=== PATIENT | male | born 1960 | race Caucasian/White ===

== ENCOUNTER → 2017-04-10 | Outpatient (CLI) | payer MEDICAID ==
--- NOTE | 2017-04-10 09:07 | XR ---
EXAMINATION TYPE: XR Hip Bilateral Complete DATE OF EXAM: 04/10/2017 CLINICAL HISTORY: Chronic increasing bilateral hip pain TECHNIQUE: AP and frogleg views of the bilateral hips are obtained. COMPARISON: None. FINDINGS: There is no acute fracture/dislocation evident in either hip. The there is advanced super ior joint space loss bilaterally with bone 3 formation including spurring and subchondral cystic coleman ge. There is flattening of bilateral femoral heads with sclerosis indicating component of avascular n ecrosis on background of advanced degenerative change cannot be excluded. There is additional margina l spurring. Scattered pelvic phleboliths are present. IMPRESSION: There is fairly symmetric advanced DJD in the bilateral hips.
== END | disposition home or self-care (01) ==
LOC: RADXRYALE 08:49
PROVIDERS: ATTEND Physician Assistant Medical
DX: M16.0 Bilateral primary osteoarthritis of hip (principal)
CPT/HCPCS: 73521

== ENCOUNTER 2017-07-24 08:39 | Day surgery (SDC) | payer MEDICAID ==
[2017-07-19 14:29] VITALS: BMI 33.0
[~2017-07-24 08:39] MED LIST: DEXAMETHASONE SOD PHOSPHATE 10 MG/ML 1 ML VIAL IV ONE; HEPARIN SODIUM,PORCINE 5,000 UNIT/ML 1 ML VIAL SQ ONE; HYDROmorphone 0.5 MG/0.5 ML SYRINGE IVP PRN; MORPHINE SULFATE 4 MG/ML SYRINGE IV PRN; ONDANSETRON 4 MG/2 ML VIAL IVP ONE; PROMETHAZINE INJ 6.25 MG in SODIUM CHLORIDE 0.9% 50 ML IVPB PRN; ceFAZolin IN SWFI 2 GM/20 ML SYRINGE IVP ONE
[2017-07-24] MEDS ORDERED: LIDOCAINE 1% 20 ML VIAL (10MG/ML) FOR IV START INTRADERMA ONE (09:10)
[2017-07-24] MEDS: LACTATED RINGERS 1,000 ML IV SCH ×2 (09:19→09:31)
--- NOTE | 2017-07-24 09:20 | P.GSHP ---
History of Present Illness H&P Date: 07/24/17 Chief Complaint: Incarcerated umbilical hernia, right inguinal hernia This a 57-year-old male referred from Dr. Johnson. Patient presents today for laparoscopic robotic-assisted repair of incarcerated umbilical hernia and right inguinal hernia. Past Medical History Past Medical History: Hyperlipidemia, Hypertension Additional Past Medical History / Comment(s): ing. and umbilical hernia History of Any Multi-Drug Resistant Organisms: None Reported Past Surgical History: Appendectomy, Hernia Repair, Orthopedic Surgery Additional Past Surgical History / Comment(s): rt rotator cuff Past Anesthesia/Blood Transfusion Reactions: No Reported Reaction Smoking Status: Current every day smoker - Past Family History Mother Family Medical History: No Reported History Medications and Allergies Home Medications Medication Instructions Recorded Confirmed Type Atorvastatin [Lipitor] 40 mg PO HS 07/19/17 07/24/17 History Chlorthalidone [Hygroton] 12.5 mg PO QAM 07/19/17 07/24/17 History Chlorthalidone [Hygroton] 25 mg PO HS 07/19/17 07/24/17 History Meloxicam 15 mg PO DAILY 07/19/17 07/24/17 History Multivitamins, Thera [Multivitamin 1 tab PO DAILY 07/19/17 07/24/17 History (formulary)] Allergies Allergy/AdvReac Type Severity Reaction Status Date / Time No Known Allergies Allergy Verified 07/19/17 14:21 Surgical - Exam - General well developed, no distress - Eyes PERRL - ENT normal pinna - Neck no masses - Respiratory normal expansion - Cardiovascular Rhythm: regular - Abdomen Abdomen: soft, non tender Hernia: umbilical (Incarcerated umbilical hernia, reducible right inguinal hernia) Assessment and Plan Assessment: Incarcerated we'll hernia, right inguinal hernia. We'll perform laparoscopic robotic-assisted repair.
[2017-07-24] MEDS ORDERED: GLYCOPYRROLATE 0.2 MG/ML 2 ML VIAL ONE (09:46)
[2017-07-24] MEDS ORDERED: HYDROmorphone (PF) 1 MG/ML ONE (09:46)
[2017-07-24] MEDS ORDERED: ROCURONIUM BROMIDE 10 MG/ML 10 ML VIAL IV ONE (09:46)
[2017-07-24] MEDS ORDERED: fentaNYL (PF) 50 MCG/ML 2 ML AMP ONE (09:46)
[2017-07-24] MEDS ORDERED: LIDOCAINE 1% INJ 10MG/ML (20 ML MDV) ONE (09:46)
[2017-07-24] MEDS ORDERED: NEOSTIGMINE 1 MG/ML 10 ML VIAL ONE (09:46)
[2017-07-24] MEDS ORDERED: PROPOFOL 10 MG/ML 20 ML VIAL IV ONE (09:46)
[2017-07-24] MEDS ORDERED: SUCCINYLCHOLINE CHLORIDE 100 MG/5 ML SYR IV ONE (09:46)
[2017-07-24] MEDS ORDERED: MIDAZOLAM 2 MG/2 ML VIAL ONE (09:46)
[2017-07-24] MEDS ORDERED: ePHEDrine SULFATE/0.9% NACL/PF 50 MG/5 ML SYRINGE IV ONE (09:46)
--- NOTE | 2017-07-24 09:47 | P.OP ---
Date of Procedure: 07/24/17 Preoperative Diagnosis: GERD Diarrhea Postoperative Diagnosis: Mild antral gastritis Mild esophagitis No significant hiatal hernia Mild diverticulosis Procedure(s) Performed: EGD Colonoscopy Anesthesia: MAC Surgeon: Patel Tavares Pathology: other (Antrum, esophagus) Condition: stable Disposition: PACU Description of Procedure: The patient's placed on the endoscopy table in the lateral position. He received IV sedation. The gastroscope placed oropharynx passed in the esophagus and into the stomach. Scope was then placed through the pylorus. The first and second portion of the duodenum appeared normal. Scope was then brought back the antrum this was mildly inflamed. A biopsies performed. The scope was then retroflexed and the remainder of the stomach appeared normal. There was no significant hiatal hernia. The GE junction was at 40 cm. The distal esophagus appeared mildly inflamed and a biopsies performed. The proximal esophagus appeared normal. The scope was withdrawn for patient. Next digital rectal exam is performed which revealed no abnormalities. The flexor colonoscope was then placed patient anus passed throughout the entire colon. The ileocecal valve was visualized. The cecum, ascending and transverse colon appeared normal. The scope was then brought back into the descending and sigmoid colon is mild diverticular changes. Scope was then brought back the rectum and this appeared normal. Scope was withdrawn from patient.
[2017-07-24] MEDS ORDERED: BUPIVACAINE (PF) 0.25% 30 ML VIAL SQ ONE (10:25)
[2017-07-24] MEDS ORDERED: LIDOCAINE 1%-EPI 1:100,000 30 ML VIAL SQ ONE (11:12)
[2017-07-24] MEDS: MEPERIDINE 50 MG/ML SYRINGE IVP ONE ×2 (11:40→12:16)
[2017-07-24] MEDS ORDERED: KETOROLAC 30 MG/ML 1 ML VIAL IVP ONE (11:40)
[2017-07-24] MEDS ORDERED: diphenhydrAMINE 50 MG/ML 1 ML VIAL IVP ONE (11:43)
[2017-07-24 11:46] VITALS: TEMP 96.8
[2017-07-24] MEDS ORDERED: HYDROcodone/APAP 7.5-325MG 1 EACH TAB PO ONE (13:39)
--- NOTE | 2017-07-24 13:50 | P.OP ---
Date of Procedure: 07/24/17 Preoperative Diagnosis: Umbilical hernia Recurrent right inguinal hernia Postoperative Diagnosis: Incarcerated umbilical hernia Recurrent right internal hernia Recurrent left inguinal hernia Procedure(s) Performed: Laparoscopic repair robotic-assisted of recurrent right inguinal hernia and recurrent left inguinal hernia Laparoscopic robotic spare of incarcerated umbilical hernia Laparoscopic excision of right cord lipoma Laparoscopic excision of left cord lipoma Anesthesia: ANGELA Surgeon: Patel Tavares Estimated Blood Loss (ml): 5 Pathology: other (Right and left cord lipoma) Condition: stable Disposition: PACU Description of Procedure: The patient was placed on the operating table in the supine position. The patient received general anesthesia. The patient's abdomen was prepped and draped in usual sterile fashion. The skin was anesthetized 1% local Xylocaine at the incision sites. Using an 11 blade a skin incision was made at the umbilicus. The patient's found have a small incarcerated umbilical hernia. The fascia was grasped with a Julianne and then the peritoneal cavity was entered with the Veress needle. Position of the Veress needle was confirmed with a positive drop test. After adequate insufflation a 5 mm trocar was placed into the peritoneal cavity. The Laparoscope was placed the peritoneal cavity. And a robotic 8 mm trocar was placed in the right lateral position and then another 8 mm robotic trochars placed in the left lateral position. The original 5 mm trocar was exchanged for a 12 mm trocar. The patient was placed in reverse Trendelenburg and then the patient was docked to the robot. Next the peritoneum over top of the right inguinal hernia was incised and then using blunt and sharp dissection and electrocautery the hernia sac was dissected free from the floor of the inguinal canal. The hernia sac was completely reduced into the peritoneal cavity. The right cord lipoma was then dissected free from the cord and excised. And then using the Pro cart pusher mesh the hernia was repaired. The peritoneum was then sutured with 2-0V lock suture. Next the peritoneum over top of the left inguinal hernia was incised and then using blunt and sharp dissection and electrocautery the hernia sac was dissected free from the floor of the inguinal canal. The hernia sac was completely reduced into the peritoneal cavity. The left cord lipoma was then dissected free from the cord and excised. And then using the Pro cart pusher mesh the hernia was repaired. The peritoneum was then sutured with 2-0V lock suture. The patient was then undocked the robot. The needle was withdrawn from the peritoneal cavity. The cord lipomas were withdrawn and sent to pathology. The umbilical hernia site was closed with 0 Ethibond suture. The skin was closed interrupted 3-0 Monocryl suture. Dermabond dressing was applied. Patient was sent to recovery in stable condition.
[2017-07-24] MEDS ORDERED: IV FLUID CONTINUATION 1,000 ML IV ONE (14:23)
[2017-07-24 15:15] VITALS: BP 136/81; PULSE 91; RESP 18
== END 2017-07-24 15:50 | disposition home or self-care (01) ==
LOC: OR 08:39
PROVIDERS: ATTEND Surgery
DX: K40.21 Bilateral inguinal hernia, without obstruction or gangrene, recurrent (principal); K42.0 Umbilical hernia with obstruction, without gangrene; I10 Essential (primary) hypertension; E66.01 Morbid (severe) obesity due to excess calories; D17.6 Benign lipomatous neoplasm of spermatic cord; E78.5 Hyperlipidemia, unspecified; F17.200 Nicotine dependence, unspecified, uncomplicated; Z79.899 Other long term (current) drug therapy; Z79.1 Long term (current) use of non-steroidal anti-inflammatories (NSAID); Z68.33 Body mass index [BMI] 33.0-33.9, adult
CPT/HCPCS: 49651; 88304; C1781; J2250; J1200; J1644; J1100; J2710; J2175; J2405; J2001; J3010; J1885; J1170; J0330; J2704; J0690

== ENCOUNTER → 2018-03-21 | Outpatient (CLI) | payer MEDICAID ==
[2018-03-21 10:40] LABS: Appearance,Urine Clear (Clear); Bilirubin,Urine Negative (Negative); Blood,Urine Negative (Negative); Color,Urine Yellow; Glucose,Urine (UA) Negative (Negative); Ketones,Urine Negative (Negative); Leukocyte Esterase,Urine Negative (Negative); Nitrite,Urine Negative (Negative); PH, Urine 7.5 (5.0-8.0); Protein,Urine Negative (Negative); Specific Gravity,Urine 1.013 (1.001-1.035); Urobilinogen,Urine <2.0 mg/dL (<2.0)
[2018-03-21 10:41] LABS: HCT 48.9 % (39.0-53.0); HGB 16.2 gm/dL (13.0-17.5); MCV 90.8 fL (80.0-100.0); Mean Platelet Volume 7.5; Platelet Count 391 k/uL (150-450); RBC 5.39 m/uL (4.30-5.90); RDW 13.7 % (11.5-15.5); WBC 8.8 k/uL (3.8-10.6)
[2018-03-21 10:53] LABS: Partial Thromboplastin Time 24.7 sec (22.0-30.0)
[2018-03-21 10:55] LABS: ALT 36 U/L (21-72); AST 34 U/L (17-59); Albumin 4.1 g/dL (3.5-5.0); Alkaline Phosphatase 115 U/L (38-126); Anion Gap 10 mmol/L; Blood Urea Nitrogen 16 mg/dL (9-20); Calcium 10.1 mg/dL (8.4-10.2); Carbon Dioxide 29 mmol/L (22-30); Chloride 101 mmol/L (98-107); Glucose 104 mg/dL (74-99); Sodium 140 mmol/L (137-145); Total Bilirubin 0.8 mg/dL (0.2-1.3); Total Protein 7.6 g/dL (6.3-8.2)
== END | disposition home or self-care (01) ==
LOC: LABPAT 10:01
PROVIDERS: ATTEND Orthopaedic Surgery
DX: Z01.812 Encounter for preprocedural laboratory examination (principal); M16.11 Unilateral primary osteoarthritis, right hip
CPT/HCPCS: 80053; 81003; 85027; 85610; 85730; 86850; 86900; 86901; 87070

== ENCOUNTER 2018-04-01 11:55 | Inpatient (IN) | payer MEDICAID ==
[2018-03-24 16:28] VITALS: BMI 36.0
[~2018-04-01 11:55] MED LIST changes: -DEXAMETHASONE SOD PHOSPHATE 10 MG/ML 1 ML VIAL IV ONE; -HEPARIN SODIUM,PORCINE 5,000 UNIT/ML 1 ML VIAL SQ ONE; +LIDOCAINE 1% 20 ML VIAL (10MG/ML) FOR IV START INTRADERMA PRN; +MIDAZOLAM 2 MG/2 ML VIAL IV PRN; -MORPHINE SULFATE 4 MG/ML SYRINGE IV PRN; -ONDANSETRON 4 MG/2 ML VIAL IVP ONE; -PROMETHAZINE INJ 6.25 MG in SODIUM CHLORIDE 0.9% 50 ML IVPB PRN; +ROPIVACAINE 246.25 MG, EPINEPHrine 0.5 MG, KETOROLAC 30 MG, cloNIDine HCL/PF 80 MCG, WA... MISCELLANE ONE; +SCOPOLAMINE 1.5MG/72HR PATCH TRANSDERM ONE; +TRANEXAMIC ACID 1,000 MG in SODIUM CHLORIDE 0.9% 50 ML IVPB ONE
[2018-04-01] MEDS: ACETAMINOPHEN TAB 500 MG TAB PO ONE ×2 (13:42→17:43)
[2018-04-01] MEDS: MELOXICAM 7.5 MG TAB PO ONE ×2 (13:42→17:43)
[2018-04-01] MEDS ORDERED: LACTATED RINGERS 1,000 ML IV ONE ×3 (13:47→16:01)
[2018-04-01] MEDS: ONDANSETRON 4 MG/2 ML VIAL IVP ONE ×2 (13:48→17:44)
[2018-04-01] MEDS: DEXAMETHASONE SOD PHOSPHATE 10 MG/ML 1 ML VIAL IV ONE ×2 (13:48→17:44)
[2018-04-01] MEDS ORDERED: ceFAZolin 3,000 MG in SODIUM CHLORIDE 0.9% IRRIGATIO 3,000 ML IRRIGATION ONE (15:01)
--- NOTE | 2018-04-01 16:12 | P.OP ---
Date of Procedure: 04/01/18 Preoperative Diagnosis: Severe osteoarthritis right hip Postoperative Diagnosis: Severe osteoarthritis right hip Procedure(s) Performed: Right total hip arthroplasty with a direct anterior approach Implants: Clark and nephew Polarstem size 7 standard Clark & Nephew R3, 3 hole acetabular shell, 56 mm Clark [employer] Nephew reflection 6.5 mm cancellus screw, 25 mm 2 Clark [employer] Nephew R3, XLPE 20 acetabular liner Clark & Nephew Oxinium femoral head 36 m, +4 All components were press-fit. The articulation is Oxinium on polyethylene. Anesthesia: spinal Surgeon: Austin Howe Quality Supervisor #1: Kenyatta Cates Estimated Blood Loss (ml): 50 Pathology: other (Femoral head) Condition: stable Disposition: PACU Indications for Procedure: After failure of conservative treatment we discussed the surgical and nonsurgical treatment options at length. Patient wishes to proceed with a total hip arthroplasty with a direct anterior approach. Complications specific to this procedure were discussed at length, including but not limited to infection, leg length discrepancy, dislocation, and nerve injury. Patient is aware of all these complications and informed consent was obtained Operative Findings: The operative findings are consistent with severe osteoarthritis of the right hip Description of Procedure: Patient was seen and evaluated in the preoperative area, consent was reviewed, and the surgical site was marked with a skin marker. Patient was then brought to the operating room and given prophylactic antibiotics intravenously. 1 g of Tranexamic acid was also given. A spinal anesthetic was administered by the anesthesia department. The patient was then placed on the [place] table with the bony prominences well-padded. The hip area was then prepped and draped in usual sterile fashion. A universal timeout was then performed, which confirmed the patient's name, surgical site, ALLERGIES, and procedure being performed. Next the incision site was located at 1 cm distal and 1 cm lateral to the anterior superior iliac spine. The skin and subcutaneous tissues were sharply incised. Incision was carefully dissected down to the fascia overlying the tensor fascia tonya muscle. This fascia was then incised in line with the incision. Next, using blunt finger dissection, the tensor fascia tonya muscle was dissected off its investing fascia. The muscle was then carefully retracted laterally with a cobra retractor over the lateral neck of the femur. Next, the circumflex vessels were identified and cauterized using the AquaMantis device. The anterior hip capsule was then exposed. The capsule was then opened and an inverted T fashion. Cobra retractors were then placed intracapsularly. The proximal femur was then visualized. The femoral neck was then osteotomized appropriate level above the lesser trochanter. Small amount of traction was placed with the [place] table. A small wedge of bone was then removed from the remaining femoral head. Next, using a corkscrew femoral head was easily removed from the acetabulum. On gross visual inspection, the femoral head had complete loss of articular cartilage in multiple periarticular osteophytes. Attention was then turned to the acetabulum. the acetabulum was exposed and any remaining labrum was excised. Sequential reaming of the acetabulum was performed using fluoroscopic guidance. When the appropriate size was reached, a trial was then placed. The position and fit of the trial was checked with fluoroscopy. The trial was then removed. Then, using fluoroscopic guidance, the final implant was impacted at 20 of anteversion and 40 of abduction, and fully seated in the acetabulum. 2 screws were then placed in the acetabulum. Again fluoroscopy was used to check position of the screws. Next, the liner was then impacted, with a 20 elevated liner located in the anterior superior quadrant. Component locking was confirmed. Attention was then directed to the femur. With the aid of the [place] table, the femur was externally rotated to approximately 130, extended, and abducted under the opposite leg. A side hook was then placed under the proximal femur, and the side hook elevator was used to elevate the proximal femur. Retractors were then placed. A capsular release was performed, as well as a release of the conjoined tendon, which afforded excellent visualization of the proximal femur. Next, a box osteotome was used to lateralize the proximal femur. A roller hand was then used to locate the femoral canal. Sequential broaching was then performed with appropriate size which afforded excellent fixation in the proximal femur. A trial was then placed with appropriate head and neck, and the hip was gently reduced with the aid of the [place] table. Fluoroscopy was then used to check position of the components, as well as to ensure equal leg lengths. The hip was then gently dislocated and the trials were then removed. Final implants were then impacted and the hip was again reduced. Final fluoroscopic x-rays confirmed that the components were in anatomic position, as well as equal leg lengths. The hip was also taken through range of motion, and found to be stable. The hip was then copiously irrigated with antibiotic solution with pulsatile lavage. The hip was then irrigated with Irrisept solution. The soft tissues were then injected with a ropivacaine solution, which consisted of 246.25 mg of ropivacaine, 0.5 mg of epinephrine, 30 mg of Toradol, 80 g of clonidine, and 48.45 mL of sterile water, for a total of 100 mL of fluid injected. A second dose of 1 g of Tranexamic acid was also given. the fascia was then closed with 2-0 strata fix suture. The subcutaneous tissue was closed with 3-0 Vicryl. The subcuticular tissue was closed with 3-0 strata fix suture. The skin was then closed with Dermabond glue and a sterile silver dressing. The patient was then transferred to the recovery room in stable condition. The patient assistant PINKY Harris was required due to the complexity of surgery, and the need for skilled surgical services coordinator for positioning, draping, exposure, retraction, and closure of the wound.
[2018-04-01 16:32] VITALS: RESP 16
[2018-04-01] MEDS ORDERED: ONDANSETRON 4 MG/2 ML VIAL IVP PRN (17:22)
[2018-04-01] MEDS ORDERED: NALOXONE 0.4 MG/ML 1 ML VIAL IV PRN (17:22)
[2018-04-01] MEDS ORDERED: HYDROmorphone 1 MG/ML 1 ML SYRINGE IVP PRN ×3 (17:22)
[2018-04-01] MEDS ORDERED: MAGNESIUM HYDROXIDE 2,400 MG/10 ML CUP PO PRN (17:22)
[2018-04-01] MEDS ORDERED: hydrOXYzine PAMOATE 25 MG CAP PO PRN (17:22)
[2018-04-01] MEDS ORDERED: DIAZEPAM 5 MG TAB PO PRN (17:22)
[2018-04-01] MEDS ORDERED: HYDROcodone/APAP 5-325MG 1 EACH TAB PO PRN (17:22)
[2018-04-01] MEDS: LACTATED RINGERS 1,000 ML IV SCH (17:44)
[2018-04-01] MEDS ORDERED: PANTOPRAZOLE 40 MG/10 ML VIAL IVP SCH (18:00)
[2018-04-01] MEDS: SODIUM CHLORIDE 0.9% 1,000 ML IV SCH (18:02)
[2018-04-01] MEDS: HYDROcodone/APAP 5-325MG 1 EACH TAB PO PRN (19:49)
[2018-04-01] MEDS: ASPIRIN 325 MG TAB PO SCH (20:07)
[2018-04-01] MEDS ORDERED: ATORVASTATIN 40 MG TAB PO SCH (21:00)
[2018-04-01] MEDS ORDERED: SENNOSIDES-DOCUSATE SODIUM 1 EACH TAB PO SCH (21:00)
[2018-04-01] MEDS ORDERED: CHLORTHALIDONE 25 MG TAB PO SCH (21:00)
--- NOTE | 2018-04-01 21:04 | CONS ---
CONSULTATION REASON FOR CONSULTATION: Advice regarding hypertension and hyperlipidemia requested by Dr. Howe. HISTORY OF PRESENT ILLNESS: This 57-year-old gentleman with a past medical history of hypertension, hyperlipidemia, appendectomy, being followed by Dr. Nix in the outpatient setting, was admitted after right total hip joint arthroplasty. There is no history of any fever or rigors. No history of headache, loss of consciousness. No chest pain or palpitation at this time. PAST MEDICAL HISTORY: 1. History of hypertension. 2. Hyperlipidemia. 3. History of appendectomy. MEDICATIONS PRIOR TO ADMISSION: 1. Multivitamins 1 p.o. daily. 2. Meloxicam 15 mg p.o. daily. 3. Hygroton 25 mg at bedtime, 12.5 mg each morning. 4. Lipitor 40 mg at bedtime. ALLERGIES: NONE. FAMILY HISTORY: No history of heart disease or strokes in the family. SOCIAL HISTORY: Previous history of smoking. No current smoking or alcohol intake. REVIEW OF SYSTEMS: ENT: No diminished hearing. No diminished vision. CARDIOVASCULAR SYSTEM: No angina, palpitations. RESPIRATORY SYSTEM: No cough, hemoptysis. GI: No nausea, vomiting. : No dysuria or retention. NERVOUS SYSTEM: No numbness, weakness. ALLERGY/IMMUNOLOGY: No asthma, hayfever. MUSCULOSKELETAL: As mentioned earlier. HEMATOLOGY/ONCOLOGY: No history of anemia. ENDOCRINE: No history of diabetes, hypothyroidism. CONSTITUTIONAL: As mentioned earlier. DERMATOLOGY: Negative. RHEUMATOLOGY: Negative. PSYCHIATRY: As mentioned earlier. PHYSICAL EXAMINATION: Patient is alert and oriented x3. Pulse 81, blood pressure 136/70, respiration 16, temperature normal, pulse ox 92% on room air. HEENT: Conjunctivae normal. Oral mucosa moist. NECK: No jugular venous distention. No carotid bruit. No lymph node enlargement. CARDIOVASCULAR SYSTEM: S1, S2 muffled. RESPIRATORY SYSTEM: Breath sounds diminished at the bases. No rhonchi. No crackles. ABDOMEN: Soft, non-tender. No mass palpable. LEGS: Status post hip arthroplasty. NERVOUS SYSTEM: Higher functions as mentioned earlier. Moves all 4 limbs. No focal deficit. LYMPHATICS: No lymph node palpable in neck, axillae or groin. SKIN: No ulcer, rash, bleeding. LABS: Labs done prior to surgery showed CBC within normal limits. CK 208 and PSA noted. UA noted. ASSESSMENT: 1. Status post right total hip joint arthroplasty. 2. Hypertension. 3. Hyperlipidemia. 4. History of umbilical hernia. 5. Remote history of nicotine dependence. 6. History of increased PSA. RECOMMENDATIONS AND DISCUSSION: I recommend to continue symptomatic treatment. Otherwise, resume the home medications. DVT prophylaxis. Incentive spirometry. Closely follow with the primary physician regarding the above-mentioned medical issues. Will follow the patient closely with you. Thank you, Dr. Howe, for letting us participate in the care of this patient. MMHELENL / MONON: [id number] /
--- NOTE | 2018-04-01 21:08 | XR ---
PROCEDURE: XR Hip Limited RT 1V DATE AND TIME: 04/01/2018 4:44 PM CLINICAL INDICATION: post-op TECHNIQUE: Department protocol. AP view. COMPARISON: None FINDINGS: Right THR appears anatomically positioned on this AP view. Postoperative changes noted; no definite unexpected findings. IMPRESSION: Postoperative.
--- NOTE | 2018-04-01 22:04 | XR ---
EXAMINATION TYPE: XR Hip Limited RT, FL guidance operating room DATE OF EXAM: 04/01/2018 COMPARISON: NONE HISTORY: 57-year-old male anterior right hip replacement FINDINGS: Image demonstrating right hip total arthroplasty. Fluoroscopy time of 1 minute 22 seconds was used during right hip replacement. 1 image/s document/s the procedure. IMPRESSION: Intraoperative fluoroscopy as above.
[2018-04-01] MEDS: ceFAZolin IN SWFI 2 GM/20 ML SYRINGE IVP SCH (22:59)
[2018-04-02] MEDS: HYDROcodone/APAP 5-325MG 1 EACH TAB PO PRN ×3 (02:44→14:20)
[2018-04-02] MEDS: LACTATED RINGERS 1,000 ML IV SCH (04:46)
[2018-04-02 07:56] LABS: Basophils % (A) 0 %; Eosinophils % (A) 0 %; HCT 41.2 % (39.0-53.0); HGB 13.9 gm/dL (13.0-17.5); Lymphocytes # (A) 1.5 k/uL (1.0-4.8); Lymphocytes % (A) 8 %; MCH 30.5 pg (25.0-35.0); MCHC 33.7 g/dL (31.0-37.0); MCV 90.5 fL (80.0-100.0); Monocytes # (A) 0.9 k/uL (0-1.0); Monocytes % (A) 5 %; Neutrophils # (A) 16.7 k/uL (1.3-7.7); Neutrophils % (A) 86 %; Platelet Count 305 k/uL (150-450); RBC 4.55 m/uL (4.30-5.90); RDW 13.6 % (11.5-15.5); WBC 19.3 k/uL (3.8-10.6)
[2018-04-02] MEDS: ASPIRIN 325 MG TAB PO SCH (08:22)
[2018-04-02] MEDS: ceFAZolin IN SWFI 2 GM/20 ML SYRINGE IVP SCH (08:24)
[2018-04-02] MEDS ORDERED: PANTOPRAZOLE 40 MG TABLET PO SCH (08:30)
--- NOTE | 2018-04-02 08:46 | P.DS ---
Providers Date of admission: 04/01/18 13:06 Expected date of discharge: 04/02/18 Attending physician: Austin Howe Consults: 04/01/18 17:22 Consult Physician Routine Consulting Provider: Austin Nix Consult Reason/Comments: medical management Do you want consulting provider notified?: Yes 04/01/18 17:46 Consult Physician Routine Consulting Provider: Jonathon Jaffe Consult Reason/Comments: medical managment Do you want consulting provider notified?: Yes Primary care physician: Austin Nix - Discharge Diagnosis(es) (1) Primary osteoarthritis of right hip Current Visit: Yes Status: Acute (2) S/P total hip arthroplasty Current Visit: Yes Status: Acute Hospital Course: This is a 57-year-old male with known history of degenerative arthritis of the right hip. The patient presents for evaluation. After discussion and consideration patient elects to proceed with total hip arthroplasty. The patient is seen preoperatively by Dr. Howe and medically cleared for surgery by their primary care physician. Patient is admitted to [facility] on 04/01/2018 for total hip arthroplasty. The procedures performed without complication or sequelae. The patient is doing well postoperatively. Labs and vital signs are stable on day of discharge. On day of discharge patient's hip incision is healing well. There is minimal erythema. There is no drainage noted at this time. There is minimal soft tissue swelling to the hip and thigh. Patient has full foot and ankle motion without difficulty or pain. Neurovascular status to the right lower extremity is intact. Patient is discharged home in good condition. Please see med rec for accurate list of home medications. Plan - Discharge Summary Discharge Rx Participant: Yes New Discharge Prescriptions: New Aspirin 325 mg PO BID #60 tab HYDROcodone/APAP 5-325MG [[place] 5-325] 1 - 2 tab PO Q4-6H PRN #84 tab PRN Reason: Pain Sennosides [Senokot] 1 tab PO BID #60 tablet No Action Multivitamins, Thera [Multivitamin (formulary)] 1 tab PO DAILY Atorvastatin [Lipitor] 40 mg PO HS Chlorthalidone [Hygroton] 12.5 mg PO QAM Chlorthalidone [Hygroton] 25 mg PO HS Meloxicam 15 mg PO DAILY Discharge Medication List Atorvastatin [Lipitor] 40 mg PO HS 07/19/17 [History] Chlorthalidone [Hygroton] 12.5 mg PO QAM 07/19/17 [History] Chlorthalidone [Hygroton] 25 mg PO HS 07/19/17 [History] Meloxicam 15 mg PO DAILY 07/19/17 [History] Multivitamins, Thera [Multivitamin (formulary)] 1 tab PO DAILY 07/19/17 [History ] Aspirin 325 mg PO BID #60 tab 04/02/18 [Rx] HYDROcodone/APAP 5-325MG [[place] 5-325] 1 - 2 tab PO Q4-6H PRN #84 tab 04/02/18 [ Rx] Sennosides [Senokot] 1 tab PO BID #60 tablet 04/02/18 [Rx] Follow up Appointment(s)/Referral(s): Austin Howe DO [Doctor of Osteopathic Medicine] - 2 Weeks Activity/Diet/Wound Care/Special Instructions: Weightbearing as tolerated with walker. Leave dressing intact. Dressing may be removed by home care nurse in 10 days. May shower with dressing on. Please follow-up with [facility] in 2 weeks and call with any questions or concerns, . Discharge Disposition: HOME WITH HOME HEALTH SERVICES
[2018-04-02] MEDS ORDERED: CHLORTHALIDONE 25 MG TAB PO SCH (09:00)
[2018-04-02] MEDS ORDERED: MELOXICAM 7.5 MG TAB PO SCH (09:00)
[2018-04-02] MEDS: SODIUM CHLORIDE 0.9% 1,000 ML IV SCH (10:04)
[2018-04-02] MEDS ORDERED: MULTIVITAMINS, THERA 1 EACH TAB PO SCH (12:00)
[2018-04-02 15:50] VITALS: BP 150/88; PULSE 77; TEMP 97.4
--- NOTE | 2018-04-02 17:29 | PN ---
PROGRESS NOTE DATE OF SERVICE: 04/02/2018 This 57-year-old gentleman admitted after total right hip arthroplasty improving significantly. No chest pain. No palpitations. No fever. EXAM: Alert and oriented x3. Pulse 76. Blood pressure 130/92, respiration 16, temperature 98 degrees, pulse ox 98% on room air. HEENT: Conjunctivae normal. Neck: No jugular venous distention. Cardiovascular: S1, S2 muffled. Respiratory: Breath sounds diminished in the bases. No rhonchi. No crackles. Abdomen is soft, nontender. Legs: Status post arthroplasty. Nervous system: No focal deficits. LABS: WBC 19.3. ASSESSMENT: 1. Status post right total hip joint arthroplasty. 2. Increased WBC, possibly reactive. 3. Hypertension. 4. Hyperlipidemia. 5. History of umbilical hernia. 6. Remote history of nicotine dependence. 7. History of increased PSA. RECOMMENDATIONS AND DISCUSSION: Recommend to continue current medications, management, symptomatic treatment. I would recommend incentive spirometry, DVT prophylaxis. Closely followed with Orthopedic surgery. Follow up with the primary physician. The rest of the recommendations per surgery. Further recommendations to follow. MMODL / IJN: [id number] /
== END 2018-04-02 18:22 | disposition home health service (06) | DRG 470 ==
LOC: 2ORMAIN 13:06 → 4SSUR 17:38
PROVIDERS: ADMIT Orthopaedic Surgery; ATTEND Orthopaedic Surgery
PROC: 0SR906A Replacement of Right Hip Joint with Oxidized Zirconium on Polyethylene Synthetic Substitute, Uncemented, Open Approach (ICD-10-PCS; principal; 2018-04-01 15:00)
DX: M16.11 Unilateral primary osteoarthritis, right hip (principal); E78.5 Hyperlipidemia, unspecified; I10 Essential (primary) hypertension; Z79.899 Other long term (current) drug therapy; Z87.891 Personal history of nicotine dependence; Z90.49 Acquired absence of other specified parts of digestive tract
CPT/HCPCS: 73501; 85025; 86850; 86891; 86900; 86901; 88300

== ENCOUNTER → 2018-04-24 | Outpatient (CLI) | payer MEDICAID ==
[2018-04-24 14:46] LABS: HCT 45.8 % (39.0-53.0); HGB 14.9 gm/dL (13.0-17.5); MCH 29.8 pg (25.0-35.0); MCHC 32.5 g/dL (31.0-37.0); MCV 91.6 fL (80.0-100.0); Mean Platelet Volume 7.3; Platelet Count 463 k/uL (150-450); RDW 13.6 % (11.5-15.5); WBC 8.9 k/uL (3.8-10.6)
[2018-04-24 14:47] LABS: Appearance,Urine Cloudy (Clear); Bacteria,Urine Rare /hpf; Bilirubin,Urine Negative (Negative); Blood,Urine Negative (Negative); Color,Urine Yellow; Glucose,Urine (UA) Negative (Negative); Hyaline Casts,Urine 4 /lpf (0-2); Ketones,Urine Negative (Negative); Leukocyte Esterase,Urine Negative (Negative); Mucus,Urine Moderate /hpf; Nitrite,Urine Negative (Negative); PH, Urine 7.5 (5.0-8.0); Protein,Urine Trace (Negative); RBC,Urine 3 /hpf (0-5); Specific Gravity,Urine 1.019 (1.001-1.035); Squamous Epithelial Cell,Urine <1 /hpf (0-4)
[2018-04-24 14:56] LABS: Partial Thromboplastin Time 24.9 sec (22.0-30.0); Prothrombin Time 10.3 sec (9.0-12.0)
[2018-04-24 14:59] LABS: ALT 48 U/L (21-72); AST 33 U/L (17-59); Alkaline Phosphatase 157 U/L (38-126); Anion Gap 9 mmol/L; Blood Urea Nitrogen 15 mg/dL (9-20); Calcium 9.8 mg/dL (8.4-10.2); Carbon Dioxide 28 mmol/L (22-30); Chloride 103 mmol/L (98-107); Glucose 99 mg/dL (74-99); Potassium 4.1 mmol/L (3.5-5.1); Sodium 140 mmol/L (137-145); Total Bilirubin 0.5 mg/dL (0.2-1.3); Total Protein 7.5 g/dL (6.3-8.2)
== END | disposition home or self-care (01) ==
LOC: LABPAT 13:35
PROVIDERS: ATTEND Orthopaedic Surgery
DX: Z01.812 Encounter for preprocedural laboratory examination (principal)
CPT/HCPCS: 80053; 81001; 85027; 85610; 85730; 87070

== ENCOUNTER → 2018-04-30 | Outpatient (CLI) | payer MEDICAID ==
[2018-04-30 14:18] LABS: Basophils % (A) 0 %; Eosinophils # (A) 0.2 k/uL (0-0.7); Eosinophils % (A) 2 %; HCT 46.3 % (39.0-53.0); HGB 15.1 gm/dL (13.0-17.5); Lymphocytes # (A) 2.4 k/uL (1.0-4.8); Lymphocytes % (A) 23 %; MCH 29.8 pg (25.0-35.0); MCHC 32.7 g/dL (31.0-37.0); MCV 91.1 fL (80.0-100.0); Mean Platelet Volume 7.2; Monocytes # (A) 0.6 k/uL (0-1.0); Monocytes % (A) 5 %; Neutrophils # (A) 7.2 k/uL (1.3-7.7); Neutrophils % (A) 68 %; Platelet Count 382 k/uL (150-450); RBC 5.08 m/uL (4.30-5.90); RDW 13.9 % (11.5-15.5); WBC 10.6 k/uL (3.8-10.6)
[2018-04-30 19:36] LABS: Anion Gap 8.8 mmol/L (4.00-12.00); Calcium 9.8 mg/dL (8.7-10.3); Carbon Dioxide 27.2 mmol/L (21.6-31.8); Potassium 3.6 mmol/L (3.5-5.5)
== END | disposition home or self-care (01) ==
LOC: LABWHC1 13:50
PROVIDERS: ATTEND Physician Assistant Medical
DX: Z01.812 Encounter for preprocedural laboratory examination (principal); D72.829 Elevated white blood cell count, unspecified; I10 Essential (primary) hypertension
CPT/HCPCS: 36415; 80048; 85025

== ENCOUNTER 2018-05-12 13:08 | Inpatient (IN) | payer MEDICAID ==
[2018-05-08 09:22] VITALS: BMI 34.4
[~2018-05-12 13:08] MED LIST changes: +ACETAMINOPHEN TAB 500 MG TAB PO ONE; -HYDROmorphone 0.5 MG/0.5 ML SYRINGE IVP PRN; +MELOXICAM 7.5 MG TAB PO ONE; +MIDAZOLAM (PF) 2 MG/2 ML VIAL IV PRN; -MIDAZOLAM 2 MG/2 ML VIAL IV PRN; -SCOPOLAMINE 1.5MG/72HR PATCH TRANSDERM ONE; +fentaNYL (PF) 50 MCG/ML 2 ML AMP IV PRN; +fentaNYL (PF) 50 MCG/ML 2 ML AMP IVP PRN
[2018-05-12] MEDS: LACTATED RINGERS 1,000 ML IV SCH ×4 (13:50→17:16)
[2018-05-12] MEDS ORDERED: ONDANSETRON 4 MG/2 ML VIAL IVP ONE (14:15)
[2018-05-12] MEDS ORDERED: DEXAMETHASONE SOD PHOSPHATE 10 MG/ML 1 ML VIAL IV ONE (14:16)
[2018-05-12] MEDS ORDERED: HYDROcodone/APAP 5-325MG 1 EACH TAB PO PRN (14:28)
[2018-05-12] MEDS ORDERED: ONDANSETRON 4 MG/2 ML VIAL IVP PRN (14:28)
[2018-05-12] MEDS ORDERED: NALOXONE 0.4 MG/ML 1 ML VIAL IV PRN (14:28)
[2018-05-12] MEDS ORDERED: DIAZEPAM 5 MG TAB PO PRN (14:28)
[2018-05-12] MEDS ORDERED: MAGNESIUM HYDROXIDE 2,400 MG/10 ML CUP PO PRN (14:28)
[2018-05-12] MEDS ORDERED: HYDROmorphone 0.5 MG/0.5 ML SYRINGE IVP PRN ×2 (14:28)
[2018-05-12] MEDS ORDERED: HYDROmorphone 1 MG/ML 1 ML SYRINGE IVP PRN (14:28)
[2018-05-12] MEDS ORDERED: hydrOXYzine PAMOATE 25 MG CAP PO PRN (14:28)
[2018-05-12] MEDS ORDERED: PHENYLEPHRINE-0.9% NACL SYG 1 MG/10 ML SYRINGE ONE (14:41)
[2018-05-12] MEDS ORDERED: SODIUM CHLORIDE 0.9% 100 ML BAG ONE (14:41)
[2018-05-12] MEDS ORDERED: SODIUM CHLORIDE 0.9% IRRIG 1,000 ML BTL IRRIGATION ONE (14:41)
[2018-05-12] MEDS ORDERED: fentaNYL (PF) 50 MCG/ML 2 ML AMP ONE (14:41)
[2018-05-12] MEDS ORDERED: PROPOFOL 10 MG/ML 20 ML VIAL IV ONE (14:41)
[2018-05-12] MEDS ORDERED: ePHEDrine SULFATE/0.9% NACL/PF 50 MG/5 ML SYRINGE IV ONE (14:41)
[2018-05-12] MEDS ORDERED: HEPARIN SODIUM,PORCINE 10,000 UNIT/ML 1 ML VIAL ONE (14:41)
[2018-05-12] MEDS ORDERED: MIDAZOLAM 2 MG/2 ML VIAL ONE (14:41)
[2018-05-12] MEDS ORDERED: TRANEXAMIC ACID 1,000 MG/10 ML VIAL ONE (14:41)
[2018-05-12] MEDS ORDERED: ceFAZolin 3,000 MG in SODIUM CHLORIDE 0.9% IRRIGATIO 3,000 ML IRRIGATION ONE (15:04)
[2018-05-12] MEDS ORDERED: LACTATED RINGERS 1,000 ML IV ONE (15:35)
--- NOTE | 2018-05-12 16:12 | P.OP ---
Date of Procedure: 05/12/18 Preoperative Diagnosis: Severe osteoarthritis left hip Postoperative Diagnosis: Severe osteoarthritis left hip Procedure(s) Performed: Left total hip arthroplasty with a direct anterior approach Implants: Clark and nephew Polarstem size 5 standard Clark & Nephew R3, 3 hole acetabular shell, 56 mm Clark [employer] Nephew reflection 6.5 mm cancellus screw, 25 mm 2 Clark [employer] Nephew R3, XLPE 20 acetabular liner Clark & Nephew Oxinium femoral head 36 m, +4 All components were press-fit. The articulation is Oxinium on polyethylene. Anesthesia: spinal Surgeon: Austin Howe Decoration Checker #1: Kenyatta Cates Estimated Blood Loss (ml): 150 Pathology: other (Femoral head) Condition: stable Disposition: PACU Indications for Procedure: After failure of conservative treatment we discussed the surgical and nonsurgical treatment options at length. Patient wishes to proceed with a total hip arthroplasty with a direct anterior approach. Complications specific to this procedure were discussed at length, including but not limited to infection, leg length discrepancy, dislocation, and nerve injury. Patient is aware of all these complications and informed consent was obtained Operative Findings: The operative findings are consistent with severe osteoarthritis of the left hip Description of Procedure: Patient was seen and evaluated in the preoperative area, consent was reviewed, and the surgical site was marked with a skin marker. Patient was then brought to the operating room and given prophylactic antibiotics intravenously. 1 g of Tranexamic acid was also given. A spinal anesthetic was administered by the anesthesia department. The patient was then placed on the [place] table with the bony prominences well-padded. The hip area was then prepped and draped in usual sterile fashion. A universal timeout was then performed, which confirmed the patient's name, surgical site, ALLERGIES, and procedure being performed. Next the incision site was located at 1 cm distal and 1 cm lateral to the anterior superior iliac spine. The skin and subcutaneous tissues were sharply incised. Incision was carefully dissected down to the fascia overlying the tensor fascia tonya muscle. This fascia was then incised in line with the incision. Next, using blunt finger dissection, the tensor fascia tonya muscle was dissected off its investing fascia. The muscle was then carefully retracted laterally with a cobra retractor over the lateral neck of the femur. Next, the circumflex vessels were identified and cauterized using the AquaMantis device. The anterior hip capsule was then exposed. The capsule was then opened and an inverted T fashion. Cobra retractors were then placed intracapsularly. The proximal femur was then visualized. The femoral neck was then osteotomized appropriate level above the lesser trochanter. Small amount of traction was placed with the [place] table. A small wedge of bone was then removed from the remaining femoral head. Next, using a corkscrew femoral head was easily removed from the acetabulum. On gross visual inspection, the femoral head had complete loss of articular cartilage in multiple periarticular osteophytes. Attention was then turned to the acetabulum. the acetabulum was exposed and any remaining labrum was excised. Sequential reaming of the acetabulum was performed using fluoroscopic guidance. When the appropriate size was reached, a trial was then placed. The position and fit of the trial was checked with fluoroscopy. The trial was then removed. Then, using fluoroscopic guidance, the final implant was impacted at 20 of anteversion and 40 of abduction, and fully seated in the acetabulum. 2 screws were then placed in the acetabulum. Again fluoroscopy was used to check position of the screws. Next, the liner was then impacted, with a 20 elevated liner located in the anterior superior quadrant. Component locking was confirmed. Attention was then directed to the femur. With the aid of the [place] table, the femur was externally rotated to approximately 130, extended, and abducted under the opposite leg. A side hook was then placed under the proximal femur, and the side hook elevator was used to elevate the proximal femur. Retractors were then placed. A capsular release was performed, as well as a release of the conjoined tendon, which afforded excellent visualization of the proximal femur. Next, a box osteotome was used to lateralize the proximal femur. A waste hand was then used to locate the femoral canal. Sequential broaching was then performed with appropriate size which afforded excellent fixation in the proximal femur. A trial was then placed with appropriate head and neck, and the hip was gently reduced with the aid of the [place] table. Fluoroscopy was then used to check position of the components, as well as to ensure equal leg lengths. The hip was then gently dislocated and the trials were then removed. Final implants were then impacted and the hip was again reduced. Final fluoroscopic x-rays confirmed that the components were in anatomic position, as well as equal leg lengths. The hip was also taken through range of motion, and found to be stable. The hip was then copiously irrigated with antibiotic solution with pulsatile lavage. The hip was then irrigated with Irrisept solution. The soft tissues were then injected with a ropivacaine solution, which consisted of 246.25 mg of ropivacaine, 0.5 mg of epinephrine, 30 mg of Toradol, 80 g of clonidine, and 48.45 mL of sterile water, for a total of 100 mL of fluid injected. A second dose of 1 g of Tranexamic acid was also given. the fascia was then closed with 2-0 strata fix suture. The subcutaneous tissue was closed with 3-0 Vicryl. The subcuticular tissue was closed with 3-0 strata fix suture. The skin was then closed with Dermabond glue and a sterile silver dressing. The patient was then transferred to the recovery room in stable condition. The intellectual property legal assistant PINKY Harris was required due to the complexity of surgery, and the need for skilled surgical dental assistant for positioning, draping, exposure, retraction, and closure of the wound.
[2018-05-12] MEDS: SODIUM CHLORIDE 0.9% 1,000 ML IV SCH (17:44)
--- NOTE | 2018-05-12 17:54 | XR ---
EXAMINATION TYPE: XR Hip Limited LT DATE OF EXAM: 05/12/2018 COMPARISON: NONE HISTORY: 57-year-old male status post hip surgery, assess cervical alignment TECHNIQUE: AP portable view FINDINGS: Image shows placement of left hip total arthroplasty. Both acetabular cup and femoral stem components of the prosthesis appear well seated without periprosthetic fracture. Soft tissue air related to rec ent operation. Alignment grossly anatomic. IMPRESSION: Uncomplicated postoperative appearance left hip total arthroplasty.
--- NOTE | 2018-05-12 18:40 | XR ---
EXAMINATION TYPE: XR Hip Limited LT, FL guidance operating room DATE OF EXAM: 05/12/2018 COMPARISON: NONE HISTORY: 57-year-old male. Left hip replacement FINDINGS: Images during placement of left hip total arthroplasty. FLUOROSCOPY Fluoroscopy time of 56 seconds was used during anterior left hip replacement. 2 image/s document/s t he procedure. IMPRESSION: Intraoperative fluoroscopy as above.
[2018-05-12] MEDS: HYDROcodone/APAP 5-325MG 1 EACH TAB PO PRN (19:59)
[2018-05-12] MEDS: ASPIRIN 325 MG TAB PO SCH (20:19)
[2018-05-12] MEDS ORDERED: ATORVASTATIN 40 MG TAB PO SCH (21:00)
[2018-05-12] MEDS ORDERED: CHLORTHALIDONE 25 MG TAB PO SCH (21:00)
[2018-05-12] MEDS ORDERED: SENNOSIDES-DOCUSATE SODIUM 1 EACH TAB PO SCH (21:00)
[2018-05-12] MEDS: ceFAZolin IN SWFI 2 GM/20 ML SYRINGE IVP SCH (22:55)
[2018-05-13] MEDS: HYDROcodone/APAP 5-325MG 1 EACH TAB PO PRN ×3 (00:53→14:30)
--- NOTE | 2018-05-13 01:09 | CONS ---
CONSULTATION DATE OF SERVICE: 05/12/2018. REASON FOR CONSULTATION: Advice regarding hypertension and other multiple medical issues requested by [facility]. HISTORY OF PRESENT ILLNESS: This 57-year-old gentleman with a past history of hypertension, hyperlipidemia, history of DJD, being followed by Dr. Nix in the outpatient setting, had left hip arthroplasty. There is no history of chest pain. No palpitations, headache, loss of consultation, seizures. No fevers or rigors at this time. PAST MEDICAL HISTORY: Hypertension, hyperlipidemia, history of DJD, history of prostate disorder, history of joint replacement. MEDICATIONS: Prior to admission include home medications of: 1. Senna 8.6 mg p.o. b.i.d. 2. Multivitamins 1 p.o. daily. 3. Meloxicam 15 mg p.o. daily. 4. Hygroton 25 mg at bedtime. 5. Lipitor 40 mg at bedtime. 6. Aspirin 325 mg p.o. b.i.d. 7. Hydrocodone 5 mg. ALLERGIES: No history of heart disease or strokes in the family. SOCIAL HISTORY: Previous history of smoking. No history of current smoking or alcohol intake. REVIEW OF SYSTEMS: ENT: No diminished hearing. CARDIOVASCULAR: No angina. RESPIRATORY: No cough. GI: No nausea. : No dysuria. NERVOUS SYSTEM: No numbness or weakness. ALLERGY: No asthma or hayfever. MUSCULOSKELETAL: As mentioned earlier. HEMATOLOGY/ONCOLOGY: No history of anemia. ENDOCRINE: No history of diabetes or hypothyroidism. CONSTITUTIONAL: As mentioned. DERMATOLOGY: Negative. RHEUMATOLOGY: Negative. PSYCH: As mentioned. PHYSICAL EXAMINATION: Patient is alert, oriented x3. The pulse is 85, blood pressure 124/70, respirations normal, temp is normal, pulse ox is 93 percent on room air. HEENT: Conjunctivae normal. Oral mucosa moist. NECK: No jugular venous distention. No lymph node enlargement. CARDIOVASCULAR: S1 and S2 muffled. LUNGS: Breath sounds diminished at the bases. No rhonchi. No crackles. ABDOMEN: Soft. No mass palpable. LEGS: No edema. No swelling. Status post hip arthroplasty. NERVOUS SYSTEM: Higher functions as mentioned. Moves all 4 limbs. No focal motor deficits. LYMPHATICS: No masses palpable. SKIN: No ulcer, rash or bleeding. LABS: Current labs are not available. ASSESSMENT: 1. Status post left hip arthroplasty. 2. Hypertension. 3. Hyperlipidemia. 4. History of degenerative joint disease. 5. History of prostate disorder. 6. History of hernia repair. 7. History of appendectomy. 8. Remote history of nicotine dependence. RECOMMENDATIONS AND DISCUSSION: This 57-year-old gentleman who presented with multiple medical problems, at this time I recommend to continue current management and symptomatic treatment. Otherwise resume home medications. Monitor blood pressure closely. Incentive spirometry. DVT prophylaxis. Monitor the patient closely. The patient may be asked to follow up with primary physician closely after discharge. Thank you, Dr. Nix, for letting us participate in the care of this patient. MMODL / IJN: [id number] /
[2018-05-13] MEDS: ceFAZolin IN SWFI 2 GM/20 ML SYRINGE IVP SCH (05:45)
[2018-05-13] MEDS: SODIUM CHLORIDE 0.9% 1,000 ML IV SCH (05:46)
[2018-05-13] MEDS: ASPIRIN 325 MG TAB PO SCH (08:05)
[2018-05-13 08:10] LABS: Basophils % (A) 0 %; Eosinophils % (A) 0 %; HGB 13.3 gm/dL (13.0-17.5); Lymphocytes # (A) 1.2 k/uL (1.0-4.8); Lymphocytes % (A) 6 %; MCH 29.5 pg (25.0-35.0); MCHC 32.3 g/dL (31.0-37.0); MCV 91.4 fL (80.0-100.0); Mean Platelet Volume 7.1; Monocytes # (A) 0.7 k/uL (0-1.0); Monocytes % (A) 4 %; Neutrophils # (A) 18.7 k/uL (1.3-7.7); Neutrophils % (A) 90 %; Platelet Count 302 k/uL (150-450); RBC 4.49 m/uL (4.30-5.90); RDW 13.7 % (11.5-15.5); WBC 20.9 k/uL (3.8-10.6)
[2018-05-13 08:17] VITALS: BP 117/71; PULSE 78; RESP 16; TEMP 97.8
[2018-05-13] MEDS ORDERED: CHLORTHALIDONE 25 MG TAB PO SCH (09:00)
[2018-05-13] MEDS ORDERED: MELOXICAM 7.5 MG TAB PO SCH (09:00)
--- NOTE | 2018-05-13 09:39 | P.DS ---
Providers Date of admission: 05/12/18 13:08 Expected date of discharge: 05/13/18 Attending physician: Austin Howe Consults: 05/12/18 14:28 Consult Physician Routine Consulting Provider: Jonathon Jaffe Consult Reason/Comments: medical management Do you want consulting provider notified?: Already Contacted Primary care physician: Austin Nix - Discharge Diagnosis(es) (1) Primary osteoarthritis of left hip Current Visit: Yes Status: Acute (2) S/P total hip arthroplasty Current Visit: No Status: Acute Hospital Course: This is a 57-year-old male with known history of degenerative arthritis of the left hip. The patient presents for evaluation. After discussion and consideration patient elects to proceed with total hip arthroplasty. The patient is seen preoperatively by Dr. Howe and medically cleared for surgery by their primary care physician. Patient is admitted to [facility] on 05/12/2018 for total hip arthroplasty. The procedures performed without complication or sequelae. The patient is doing well postoperatively. Labs and vital signs are stable on day of discharge. On day of discharge patient's hip incision is healing well. There is minimal erythema. There is no drainage noted at this time. There is minimal soft tissue swelling to the hip and thigh. Patient has full foot and ankle motion without difficulty or pain. Neurovascular status to the left lower extremity is intact. Patient is discharged home in good condition. Please see med rec for accurate list of home medications. Plan - Discharge Summary Discharge Rx Participant: No New Discharge Prescriptions: New HYDROcodone/APAP 5-325MG [[place] 5-325] 1 - 2 tab PO Q4-6H PRN #84 tab PRN Reason: Pain Aspirin 325 mg PO BID #60 tab Sennosides [Senokot] 1 tab PO BID #60 tablet No Action Multivitamins, Thera [Multivitamin (formulary)] 1 tab PO DAILY Atorvastatin [Lipitor] 40 mg PO HS Chlorthalidone [Hygroton] 12.5 mg PO QAM Chlorthalidone [Hygroton] 25 mg PO HS Meloxicam 15 mg PO DAILY Aspirin 325 mg PO BID #60 tab Sennosides [Senokot] 8.6 mg PO BID Discharge Medication List Atorvastatin [Lipitor] 40 mg PO HS 07/19/17 [History] Chlorthalidone [Hygroton] 12.5 mg PO QAM 07/19/17 [History] Chlorthalidone [Hygroton] 25 mg PO HS 07/19/17 [History] Meloxicam 15 mg PO DAILY 07/19/17 [History] Multivitamins, Thera [Multivitamin (formulary)] 1 tab PO DAILY 07/19/17 [History ] Aspirin 325 mg PO BID #60 tab 04/02/18 [Rx] Aspirin 325 mg PO BID #60 tab 05/12/18 [Rx] HYDROcodone/APAP 5-325MG [[place] 5-325] 1 - 2 tab PO Q4-6H PRN #84 tab 05/12/18 [ Rx] Sennosides [Senokot] 8.6 mg PO BID 05/12/18 [History] Sennosides [Senokot] 1 tab PO BID #60 tablet 05/13/18 [Rx] Follow up Appointment(s)/Referral(s): Austin Howe DO [Doctor of Osteopathic Medicine] - 2 Weeks Activity/Diet/Wound Care/Special Instructions: Weightbearing as tolerated with walker. Leave dressing intact. Dressing may be removed by home care nurse in 10 days. May shower with dressing on. Please follow-up with [facility] in 2 weeks and call with any questions or concerns [phone]. Discharge Disposition: HOME WITH HOME HEALTH SERVICES
[2018-05-13] MEDS ORDERED: MULTIVITAMINS, THERA 1 EACH TAB PO SCH (12:00)
--- NOTE | 2018-05-14 08:06 | PN ---
PROGRESS NOTE DATE OF SERVICE: 05/13/2018 This 57-year-old gentleman was admitted after left hip arthroplasty, improved significantly. No chest pain. No palpitations. No fever. PHYSICAL EXAM: Alert and oriented x3. Pulse 78, blood pressure 117/71, respirations 16, temperature 97.8, pulse ox 97% on room air. HEENT: Conjunctivae normal. NECK: No jugular venous distension. CARDIOVASCULAR SYSTEM: S1, S2, muffled. RESPIRATORY: Breath sounds diminished at the bases, no rhonchi, no crackles./ ABDOMEN: Soft, nontender. NERVOUS SYSTEM: No focal deficits. LEGS: Status post surgery. LABS: WBC 20.1, hemoglobin is 13.3. ASSESSMENT: 1. Status post left total hip joint arthroplasty. 2. Increased elevated WBC, possibly reactive. 3. Hypertension. 4. Hyperlipidemia. 5. History of degenerative joint disease. 6. History of prostate disorder. 7. History of hernia repair. 8. History of appendectomy. 9. Remote history of nicotine dependence. RECOMMENDATION: Recommend to continue current management and symptomatic treatment. I would recommend follow up closely with primary physician outpatient setting otherwise followup labs in the outpatient setting. The rest of the recommendations per Orthopedic Surgery. Further recommendations to follow. MMODL / IJN: [id number] /
== END 2018-05-13 15:45 | disposition home health service (06) | DRG 470 ==
LOC: 2ORMAIN 13:08 → 4SSUR 16:44
PROVIDERS: ADMIT Orthopaedic Surgery; ATTEND Orthopaedic Surgery
PROC: 0SRB06A Replacement of Left Hip Joint with Oxidized Zirconium on Polyethylene Synthetic Substitute, Uncemented, Open Approach (ICD-10-PCS; principal; 2018-05-12 14:45)
DX: M16.12 Unilateral primary osteoarthritis, left hip (principal); I10 Essential (primary) hypertension; E78.2 Mixed hyperlipidemia; N42.9 Disorder of prostate, unspecified; D72.829 Elevated white blood cell count, unspecified; Z96.641 Presence of right artificial hip joint; Z79.82 Long term (current) use of aspirin; Z79.1 Long term (current) use of non-steroidal anti-inflammatories (NSAID); Z79.899 Other long term (current) drug therapy; Z87.891 Personal history of nicotine dependence; Z90.49 Acquired absence of other specified parts of digestive tract; Z82.49 Family history of ischemic heart disease and other diseases of the circulatory system
CPT/HCPCS: 73501; 85025; 86850; 86900; 86901; 88300

== ENCOUNTER 2018-05-17 13:30 | Emergency (ER) | payer MEDICAID ==
[2018-05-17] MEDS ORDERED: SODIUM CHLORIDE 0.9% 500 ML 500 ML IV STA (13:38)
[2018-05-17] MEDS ORDERED: METOCLOPRAMIDE 5 MG/ML 2 ML VIAL IVP STA (13:50)
[2018-05-17] MEDS ORDERED: diphenhydrAMINE 50 MG/ML 1 ML VIAL IVP STA (13:50)
--- NOTE | 2018-05-17 14:12 | ED ---
SOB HPI - General Chief Complaint: Shortness of Breath Stated Complaint: post surgical LUCY Time Seen by Provider: 05/17/18 13:38 Source: patient, RN notes reviewed Mode of arrival: wheelchair Limitations: no limitations - History of Present Illness Initial Comments: 57-year-old male presents emergency Department chief complaint of hiccups, shortness breath. Patient states that he's had hiccups since being discharged from the hospital. Patient states he had left hip surgery by Dr. Howe on Saturday. Patient states that he was discharged in for last 2 days he's had hiccups that do resolve it hasn't returned. He states that they gets a bad that he feels short of breath. He states he only has no hiccups having as normal. Denies any chest pain, headache or dizziness. Patient states his hip is doing well that he is an bleeding well. Patient denies any leg swelling or redness. Patient states only new was blood pressure medication when he got home. Patient denies any other complaints at this time. - Related Data Home Medications Medication Instructions Recorded Confirmed Atorvastatin [Lipitor] 40 mg PO HS 07/19/17 05/17/18 Chlorthalidone [Hygroton] 12.5 mg PO QAM 07/19/17 05/17/18 Chlorthalidone [Hygroton] 25 mg PO HS 07/19/17 05/17/18 Multivitamins, Thera [Multivitamin 1 tab PO DAILY 07/19/17 05/17/18 (formulary)] Sennosides [Senokot] 8.6 mg PO BID 05/12/18 05/17/18 Previous Rx's Medication Instructions Recorded Aspirin 325 mg PO BID #60 tab 04/02/18 HYDROcodone/APAP 5-325MG [[place] 1 - 2 tab PO Q4-6H PRN #84 tab 05/12/18 5-325] chlorproMAZINE [Thorazine] 25 mg PO Q6H #10 tablet 05/17/18 Allergies Allergy/AdvReac Type Severity Reaction Status Date / Time No Known Allergies Allergy Verified 05/17/18 14:49 Review of Systems ROS Statement: Those systems with pertinent positive or pertinent negative responses have been documented in the HPI. ROS Other: All systems not noted in ROS Statement are negative. Past Medical History Past Medical History: Hyperlipidemia, Hypertension, Osteoarthritis (OA), Prostate Disorder Additional Past Medical History / Comment(s): sight BPH History of Any Multi-Drug Resistant Organisms: None Reported Past Surgical History: Appendectomy, Hernia Repair, Joint Replacement, Orthopedic Surgery Additional Past Surgical History / Comment(s): rt total hip 04-01-18,rt rotator cuff,ing & umb hernia repair Past Anesthesia/Blood Transfusion Reactions: No Reported Reaction Past Psychological History: No Psychological Hx Reported Smoking Status: Former smoker Past Alcohol Use History: Occasional Past Drug Use History: None Reported - Past Family History Mother Family Medical History: No Reported History General Exam Limitations: no limitations General appearance: alert, in no apparent distress Head exam: Present: atraumatic, normocephalic, normal inspection Eye exam: Present: normal appearance, PERRL, EOMI. Absent: scleral icterus, conjunctival injection, periorbital swelling ENT exam: Present: normal exam, normal oropharynx, mucous membranes moist, TM's normal bilaterally Neck exam: Present: normal inspection, full ROM. Absent: tenderness, meningismus, lymphadenopathy Respiratory exam: Present: normal lung sounds bilaterally. Absent: respiratory distress, wheezes, rales, rhonchi, stridor Cardiovascular Exam: Present: regular rate, normal rhythm, normal heart sounds. Absent: systolic murmur, diastolic murmur, rubs, gallop, clicks GI/Abdominal exam: Present: soft, normal bowel sounds. Absent: distended, tenderness, guarding, rebound, rigid Neurological exam: Present: alert Skin exam: Present: warm, dry, intact, normal color. Absent: rash Course Vital Signs 05/17/18 05/17/18 13:34 16:07 Temperature 97.9 F Pulse Rate 63 76 Respiratory 18 16 Rate Blood Pressure 131/83 156/94 O2 Sat by Pulse 95 97 Oximetry Medical Decision Making - Medical Decision Making 49-year-old male presented from for hiccups causing shortness of breath. Patient is postsurgical most likely cause. Patient was given Reglan, IV fluids and Benadryl initially with minimal relief. Patient was then given IM Thorazine which has resolved all the symptoms. Patient labwork reviewed, chest x-ray. Patient states he feels improved he has no complaints. He'll be discharged at this time return parameters were discussed. - Lab Data Result diagrams: 05/17/18 14:04 05/17/18 14:04 Lab Results 05/17/18 05/17/18 05/17/18 Range/Units 14:04 14:04 14:04 WBC 12.3 H (3.8-10.6) k/uL RBC 4.44 (4.30-5.90) m/uL Hgb 13.1 (13.0-17.5) gm/dL Hct 39.5 (39.0-53.0) % MCV 89.0 (80.0-100.0) fL MCH 29.5 (25.0-35.0) pg MCHC 33.1 (31.0-37.0) g/dL RDW 13.7 (11.5-15.5) % Plt Count 394 (150-450) k/uL Neutrophils % 73 % Lymphocytes % 17 % Monocytes % 6 % Eosinophils % 3 % Basophils % 0 % Neutrophils # 9.0 H (1.3-7.7) k/uL Lymphocytes # 2.1 (1.0-4.8) k/uL Monocytes # 0.7 (0-1.0) k/uL Eosinophils # 0.4 (0-0.7) k/uL Basophils # 0.0 (0-0.2) k/uL Sodium 138 (137-145) mmol/L Potassium 3.4 L (3.5-5.1) mmol/L Chloride 100 (98-107) mmol/L Carbon Dioxide 30 (22-30) mmol/L Anion Gap 8 mmol/L BUN 17 (9-20) mg/dL Creatinine 0.63 L (0.66-1.25) mg/dL Est GFR (CKD-EPI)AfAm >90 (>60 ml/min/1.73 sqM) Est GFR (CKD-EPI)NonAf >90 (>60 ml/min/1.73 sqM) Glucose 105 H (74-99) mg/dL Calcium 9.3 (8.4-10.2) mg/dL Magnesium 1.9 (1.6-2.3) mg/dL Total Bilirubin 0.8 (0.2-1.3) mg/dL AST 50 (17-59) U/L ALT 42 (21-72) U/L Alkaline Phosphatase 127 H (38-126) U/L Troponin I <0.012 (0.000-0.034) ng/mL Total Protein 6.8 (6.3-8.2) g/dL Albumin 3.5 (3.5-5.0) g/dL Disposition Clinical Impression: Intractable hiccups Disposition: HOME SELF-CARE Condition: Stable Instructions: Hiccups (ED) Additional Instructions: Please return to the Emergency Department if symptoms worsen or any other concerns. Prescriptions: chlorproMAZINE [Thorazine] 25 mg PO Q6H #10 tablet Is patient prescribed a controlled substance at d/c from ED?: No Referrals: Austin Nix DO [Primary Care Provider] - 1-2 days Time of Disposition: 17:28
[2018-05-17 14:18] LABS: Basophils % (A) 0 %; Eosinophils # (A) 0.4 k/uL (0-0.7); Eosinophils % (A) 3 %; HCT 39.5 % (39.0-53.0); HGB 13.1 gm/dL (13.0-17.5); Lymphocytes # (A) 2.1 k/uL (1.0-4.8); Lymphocytes % (A) 17 %; MCH 29.5 pg (25.0-35.0); MCHC 33.1 g/dL (31.0-37.0); Mean Platelet Volume 6.9; Monocytes # (A) 0.7 k/uL (0-1.0); Monocytes % (A) 6 %; Neutrophils % (A) 73 %; Platelet Count 394 k/uL (150-450); RBC 4.44 m/uL (4.30-5.90); RDW 13.7 % (11.5-15.5); WBC 12.3 k/uL (3.8-10.6)
[2018-05-17 14:30] LABS: ALT 42 U/L (21-72); AST 50 U/L (17-59); Albumin 3.5 g/dL (3.5-5.0); Alkaline Phosphatase 127 U/L (38-126); Anion Gap 8 mmol/L; Blood Urea Nitrogen 17 mg/dL (9-20); Calcium 9.3 mg/dL (8.4-10.2); Carbon Dioxide 30 mmol/L (22-30); Chloride 100 mmol/L (98-107); Glucose 105 mg/dL (74-99); Magnesium 1.9 mg/dL (1.6-2.3); Potassium 3.4 mmol/L (3.5-5.1); Sodium 138 mmol/L (137-145); Total Bilirubin 0.8 mg/dL (0.2-1.3); Total Protein 6.8 g/dL (6.3-8.2)
--- NOTE | 2018-05-17 15:04 | XR ---
EXAMINATION TYPE: XR chest 2V DATE OF EXAM: 05/17/2018 COMPARISON: None HISTORY: 57-year-old male difficulty breathing TECHNIQUE: AP and lateral views FINDINGS: The heart is upper limits of normal in size. Asymmetric elevation of the right hemidiaphragm. Mild in terstitial prominence of uncertain chronicity, no consolidation or pleural effusion. IMPRESSION: 1. Heart upper limits of normal in size. The interstitium is mildly prominent and may be chronic. The re is no pulmonary edema. 2. Asymmetric elevation of the right hemidiaphragm. This can be a normal finding in some patients but can also be seen in the setting of hemidiaphragmatic paralysis. Clinically correlate.
[2018-05-17] MEDS ORDERED: chlorproMAZINE 25 MG/ML 2 ML AMP IM STA (15:27)
[2018-05-17 16:08] VITALS: BP 156/94
[2018-05-17 17:52] VITALS: PULSE 98; RESP 18; TEMP 98
== END 2018-05-17 17:45 | disposition home or self-care (01) ==
LOC: EC 13:30
DX: R06.6 Hiccough (principal); R06.02 Shortness of breath; E78.5 Hyperlipidemia, unspecified; I10 Essential (primary) hypertension; M19.90 Unspecified osteoarthritis, unspecified site; Z87.891 Personal history of nicotine dependence; Z79.899 Other long term (current) drug therapy; Z96.641 Presence of right artificial hip joint
CPT/HCPCS: 36415; 93005; 80053; 83735; 84484; 85025; 71046; 99285; 96374; 96375; 96372; J1200; J2765; J3230

== ENCOUNTER 2018-12-26 09:22 | Day surgery (SDC) | payer MEDICAID ==
[2018-12-23 11:44] VITALS: BMI 35.9
[~2018-12-26 09:22] MED LIST changes: -ACETAMINOPHEN TAB 500 MG TAB PO ONE; +LACTATED RINGERS 1,000 ML IV SCH; -LIDOCAINE 1% 20 ML VIAL (10MG/ML) FOR IV START INTRADERMA PRN; -MELOXICAM 7.5 MG TAB PO ONE; -MIDAZOLAM (PF) 2 MG/2 ML VIAL IV PRN; -ROPIVACAINE 246.25 MG, EPINEPHrine 0.5 MG, KETOROLAC 30 MG, cloNIDine HCL/PF 80 MCG, WA... MISCELLANE ONE; -TRANEXAMIC ACID 1,000 MG in SODIUM CHLORIDE 0.9% 50 ML IVPB ONE; -ceFAZolin IN SWFI 2 GM/20 ML SYRINGE IVP ONE; -fentaNYL (PF) 50 MCG/ML 2 ML AMP IV PRN; -fentaNYL (PF) 50 MCG/ML 2 ML AMP IVP PRN
[2018-12-26 09:38] VITALS: RESP 16; TEMP 97.5
[2018-12-26] MEDS ORDERED: PROPOFOL 10 MG/ML 20 ML VIAL IV ONE (10:23)
[2018-12-26] MEDS ORDERED: LIDOCAINE 1% INJ 10MG/ML (20 ML MDV) ONE (10:23)
--- NOTE | 2018-12-26 11:03 | P.PCN ---
Date of Procedure: 12/26/18 Procedure(s) Performed: BRIEF HISTORY: Patient is a 58-year-old pleasant male scheduled for an elective colonoscopy as a part of screening for colorectal neoplasia. PROCEDURE PERFORMED: Colonoscopy with snare polypectomy. PREOPERATIVE DIAGNOSIS: Screening for colon cancer. IV sedation per Anesthesia. PROCEDURE: After informed consent was obtained, the patient, was brought into the endoscopy unit. IV sedation was administered by Anesthesia under continuous monitoring. Digital rectal examination was normal. Initially the Olympus CF-160 flexible video colonoscope was then inserted in the rectum, gradually advanced into the cecum without any difficulty. Careful examination was performed as the scope was gradually being withdrawn. Ileocecal valve and the appendiceal orifice were visualized and appeared normal. Prep was excellent. Mucosa of the cecum, ascending colon, transverse colon, descending colon, sigmoid colon, and rectum appeared normal. There were 2 polyps in the proximal rectum measuring 5 mm in size both of which were removed by snare polypectomy. Retroflexion was performed in the rectum and no lesions were seen. The patient tolerated the procedure well. IMPRESSION: 5 mm 2 proximal rectal polyps status post snare polypectomy Rest of the colon appeared normal RECOMMENDATIONS: Findings of this examination were discussed with the patient as well as his family. He was advised to follow with the biopsy results. If the biopsy shows an adenoma, he can have a repeat colonoscopy in 5 years.
[2018-12-26 11:09] VITALS: BP 148/88; PULSE 55
== END 2018-12-26 11:30 | disposition home or self-care (01) ==
LOC: ORWHC2ENDO 09:22
PROVIDERS: ATTEND Internal Medicine Gastroenterology
DX: Z12.11 Encounter for screening for malignant neoplasm of colon (principal); D12.0 Benign neoplasm of cecum; D12.8 Benign neoplasm of rectum; I10 Essential (primary) hypertension; E78.5 Hyperlipidemia, unspecified; N40.0 Benign prostatic hyperplasia without lower urinary tract symptoms; Z79.899 Other long term (current) drug therapy; Z96.641 Presence of right artificial hip joint; Z90.49 Acquired absence of other specified parts of digestive tract
CPT/HCPCS: 88305; 45385; J2001; J2704

== ENCOUNTER → 2019-10-27 | Outpatient (CLI) | payer MEDICAID | END | disposition home or self-care (01) | LOC: RADXRYALE 08:54 | PROVIDERS: ATTEND Physician Assistant Medical | DX: Z53.9 Procedure and treatment not carried out, unspecified reason (principal) ==

== ENCOUNTER → 2020-04-27 | Outpatient (CLI) | payer MEDICAID ==
--- NOTE | 2020-04-27 10:08 | XR ---
EXAMINATION TYPE: XR cervical spine comp DATE OF EXAM: 04/27/2020 CLINICAL HISTORY: pain COMPARISON: NONE TECHNIQUE: Frontal, lateral, oblique, swimmers, and open mouth view of the cervical spine are obtaine d. FINDINGS: The cervical spine is visualized in its entirety from C1 thru the top of T1 level. It is s atisfactory in alignment without evidence of acute fracture or dislocation. The pre-vertebral soft t issue appears within normal limits. Moderate to severe degenerative disc space narrowing extending fr om C3 through C7-T1. Ventral spondylosis identified. Foraminal encroachment seen bilaterally at each of these levels. The C1-C2 articulation is unremarkable on the open mouth view. IMPRESSION: No acute fracture or dislocation is seen in the cervical spine.ICD 10 NO FRACTURE, INITI AL EVALUATION
== END | disposition home or self-care (01) ==
LOC: RADXRYALE 09:49
PROVIDERS: ATTEND Physician Assistant Medical
DX: M54.2 Cervicalgia (principal); R20.2 Paresthesia of skin
CPT/HCPCS: 72050

== ENCOUNTER 2020-08-07 14:51 | Emergency (ER) | payer MEDICAID ==
[2020-08-07 14:54] VITALS: BP 166/91; PULSE 59; RESP 18; TEMP 98.1
[2020-08-07] MEDS ORDERED: FLUORESCEIN STRIPS 1 MG STRIP RIGHT EYE ONE (15:19)
[2020-08-07] MEDS ORDERED: PROPARACAINE 0.5% OPHTH DROPS 15 ML BTL RIGHT EYE STA (15:19)
[2020-08-07] MEDS ORDERED: TOBRAMYCIN 0.3% OPHTH DROPS 5 ML BTL RIGHT EYE STA (15:49)
[2020-08-07] MEDS ORDERED: DIPH,PERTUS(ACELL)TETVAC-LF 0.5 ML VIAL IM ONE (15:49)
--- NOTE | 2020-08-07 15:51 | ED ---
Eye Problem HPI - General Chief complaint: Eye Problems Stated complaint: SOMETHING IN RIGHT EYE Time Seen by Provider: 08/07/20 15:19 Source: patient, RN notes reviewed Mode of arrival: ambulatory Limitations: no limitations - History of Present Illness Initial comments: 60-year-old male presents emergency Department with chief complaint of right eye foreign body. Patient states he was working on some metal. Believes he has been his eye. His been irritated for couple days unsure when his last tetanus was no blurred vision no other complaints. - Related Data Home Medications Medication Instructions Recorded Confirmed Atorvastatin [Lipitor] 40 mg PO HS 07/19/17 12/23/18 Multivitamins, Thera [Multivitamin 1 tab PO DAILY 07/19/17 12/23/18 (formulary)] Atenolol/Chlorthalidone 1 each PO HS 12/25/18 12/25/18 [Atenolol-Chlorthalidone 50-25] Allergies Allergy/AdvReac Type Severity Reaction Status Date / Time No Known Allergies Allergy Verified 08/07/20 14:54 Review of Systems ROS Statement: Those systems with pertinent positive or pertinent negative responses have been documented in the HPI. ROS Other: All systems not noted in ROS Statement are negative. Past Medical History Past Medical History: Hyperlipidemia, Hypertension, Osteoarthritis (OA), Prostate Disorder Additional Past Medical History / Comment(s): Slight BPH History of Any Multi-Drug Resistant Organisms: None Reported Past Surgical History: Appendectomy, Hernia Repair, Joint Replacement, Orthopedic Surgery Additional Past Surgical History / Comment(s): Rt total hip 04-01-18; LT TOTAL HIP 05/12/18. Rt rotator cuff, Ing & Umb hernia repair Past Anesthesia/Blood Transfusion Reactions: No Reported Reaction Past Psychological History: No Psychological Hx Reported Past Alcohol Use History: Occasional Past Drug Use History: None Reported - Past Family History Mother Family Medical History: No Reported History Brother(s) Family Medical History: Cancer Additional Family Medical History / Comment(s): PROSTATE CA General Exam Limitations: no limitations General appearance: alert, in no apparent distress Head exam: Present: atraumatic, normocephalic, normal inspection Eye exam: Present: PERRL, EOMI, conjunctival injection (Mild right). Absent: normal appearance (Foreign body with rust ring and the 9 o'clock position), scleral icterus, periorbital swelling ENT exam: Present: normal exam, normal oropharynx, mucous membranes moist, TM's normal bilaterally Neck exam: Present: normal inspection, full ROM. Absent: tenderness, meningismus, lymphadenopathy Respiratory exam: Present: normal lung sounds bilaterally. Absent: respiratory distress, wheezes, rales, rhonchi, stridor Cardiovascular Exam: Present: regular rate, normal rhythm, normal heart sounds. Absent: systolic murmur, diastolic murmur, rubs, gallop, clicks Course Vital Signs 08/07/20 14:52 Temperature 98.1 F Pulse Rate 59 L Respiratory 18 Rate Blood Pressure 166/91 O2 Sat by Pulse 97 Oximetry Procedures - Forgein Body Removal Eye Site: Right Location in eye(s): 9 o'clock position Anesthetic Used: Proparacaine Eye Exam Technique: Chau Lamp, Fluorescein Foreign Body Suspected: Metal Forgein Body Removal Technique: [place] Remaining Debris: No Patient Tolerated: no complications Medical Decision Making - Medical Decision Making Foreign body was removed patient we discharged on Tobrex eyedrops patient has follow-up with ophthalmology. Patient's tetanus is updated. Disposition Clinical Impression: Foreign body of right eye Disposition: HOME SELF-CARE Condition: Stable Instructions (If sedation given, give patient instructions): Eye Foreign Body (ED) Additional Instructions: Use Tobrex eyedrops 1 drop every 4 hours for 5 daysPlease return to the Emergency Department if symptoms worsen or any other concerns. Is patient prescribed a controlled substance at d/c from ED?: No Referrals: Austin Nix DO [Primary Care Provider] - 1-2 days Guillermo Leija MD [STAFF PHYSICIAN] - 1-2 days Time of Disposition: 15:50
== END 2020-08-07 16:07 | disposition home or self-care (01) ==
LOC: EC 14:51
DX: T15.91XA Foreign body on external eye, part unspecified, right eye, initial encounter (principal); E78.5 Hyperlipidemia, unspecified; I10 Essential (primary) hypertension; M19.90 Unspecified osteoarthritis, unspecified site; Z23 Encounter for immunization
CPT/HCPCS: 65205; 90471; 90715; 99283

== ENCOUNTER → 2021-06-29 | Outpatient (CLI) | payer MEDICAID ==
--- NOTE | 2021-06-29 12:04 | XR ---
EXAMINATION TYPE: XR knee complete LT DATE OF EXAM: 06/29/2021 COMPARISON: None HISTORY: 61-year-old male [id number], left knee pain TECHNIQUE: 3 views FINDINGS: Small knee joint effusion. Mild anterior soft tissue swelling. Mild vascular calcifications posterior ly. Incidental broad-based osteochondroma measuring 1.6 cm wide and projecting out by 1.3 cm into the medial upper leg soft tissues just below the proximal tibial metaphysis. No acute fracture, subluxat ion, dislocation is seen. IMPRESSION: 1. A broad-based osteochondroma projecting 1.3 cm out into the medial upper leg soft tissues and loca jori just below the proximal tibial metaphysis. 2. Small knee joint effusion and mild anterior soft tissue swelling. No acute osseous abnormality see n.
== END | disposition home or self-care (01) ==
LOC: RADXRYALE 10:17
PROVIDERS: ATTEND Physician Assistant
DX: D16.22 Benign neoplasm of long bones of left lower limb (principal); M25.462 Effusion, left knee; M79.89 Other specified soft tissue disorders

== ENCOUNTER 2021-07-01 12:44 | Emergency (ER) | payer MEDICAID ==
[2021-07-01 12:49] VITALS: TEMP 97.2
--- NOTE | 2021-07-01 13:03 | ED ---
General Adult HPI - General Chief complaint: Extremity Problem,Nontraumatic Stated complaint: L knee pain Time Seen by Provider: 07/01/21 12:51 Source: patient, RN notes reviewed, old records reviewed Mode of arrival: ambulatory Limitations: no limitations - History of Present Illness Initial comments: 61-year-old male presents for evaluation of left knee pain and swelling. Patient was walking up the stairs yesterday felt 2 sequential popping sensations in the left knee. He's had pain and swelling since that time. States he did have a knee swelling about for 5 days ago was seen by his primary care physician given a dose of steroid which did improve the swelling but then the patient subsequently had this popping sensation while climbing stairs and the swelling has returned. No fever. - Related Data Home Medications Medication Instructions Recorded Confirmed Atorvastatin [Lipitor] 40 mg PO HS 07/19/17 07/01/21 Multivitamins, Thera [Multivitamin 1 tab PO HS 07/19/17 07/01/21 (formulary)] Atenolol/Chlorthalidone 1 tab PO HS 12/25/18 07/01/21 [Atenolol-Chlorthalidone 50-25] Meloxicam [Mobic] 15 mg PO HS PRN 07/01/21 07/01/21 predniSONE See Taper PO DIRECTED 07/01/21 07/01/21 Allergies Allergy/AdvReac Type Severity Reaction Status Date / Time No Known Allergies Allergy Verified 07/01/21 13:36 Review of Systems ROS Statement: Those systems with pertinent positive or pertinent negative responses have been documented in the HPI. ROS Other: All systems not noted in ROS Statement are negative. Past Medical History Past Medical History: Hyperlipidemia, Hypertension, Osteoarthritis (OA), Prostate Disorder Additional Past Medical History / Comment(s): Slight BPH History of Any Multi-Drug Resistant Organisms: None Reported Past Surgical History: Appendectomy, Hernia Repair, Joint Replacement, Orthopedic Surgery Additional Past Surgical History / Comment(s): Rt total hip 04-01-18; LT TOTAL HIP 05/12/18. Rt rotator cuff, Ing & Umb hernia repair Past Anesthesia/Blood Transfusion Reactions: No Reported Reaction Past Psychological History: No Psychological Hx Reported Past Alcohol Use History: Occasional Past Drug Use History: None Reported - Past Family History Mother Family Medical History: No Reported History Brother(s) Family Medical History: Cancer Additional Family Medical History / Comment(s): PROSTATE CA General Exam Limitations: no limitations General appearance: alert, in no apparent distress Head exam: Present: atraumatic, normocephalic Eye exam: Present: normal appearance, PERRL ENT exam: Present: normal exam Neck exam: Present: normal inspection. Absent: tenderness, meningismus Respiratory exam: Present: normal lung sounds bilaterally. Absent: respiratory distress, wheezes Cardiovascular Exam: Present: regular rate, normal rhythm GI/Abdominal exam: Present: soft. Absent: distended, tenderness Extremities exam: Present: other (Left knee effusion, normal color, no warmth, no erythema, distal pulses are intact, no calf tenderness) Neurological exam: Present: alert, oriented X3, CN II-XII intact. Absent: motor sensory deficit Psychiatric exam: Present: normal affect, normal mood Skin exam: Present: warm, dry, intact. Absent: cyanosis, diaphoretic Course Vital Signs 07/01/21 12:45 Temperature 97.2 F L Pulse Rate 62 Respiratory 20 Rate Blood Pressure 158/91 O2 Sat by Pulse 96 Oximetry Medical Decision Making - Medical Decision Making X-ray negative for fracture or dislocation. Did perform an ultrasound because a primary care had mentioned the possibility of blood clot. I have low suspicion for this. This was negative for DVT. Patient placed in a knee immobilizer and given orthopedic follow-up. I do have suspicion for ligamentous injury in this patient. Disposition Clinical Impression: Effusion, left knee, Knee sprain Disposition: HOME SELF-CARE Condition: Good Instructions (If sedation given, give patient instructions): Knee Sprain (ED), Knee Immobilizer (ED) Is patient prescribed a controlled substance at d/c from ED?: No Referrals: Austin Nix DO [Primary Care Provider] - 1-2 days Austin Howe DO [Doctor of Osteopathic Medicine] - 1-2 days Time of Disposition: 13:02
--- NOTE | 2021-07-01 13:33 | XR ---
EXAMINATION TYPE: XR knee complete LT DATE OF EXAM: 07/01/2021 COMPARISON: 06/29/2021 HISTORY: 61 years Male. STUDY INDICATION GIVEN: pain and swelling . TECHNIQUE: 3 radiographs of the left knee IMPRESSION: No acute osseous or articular abnormalities. No significant knee joint effusion. Linear vascular calcifications are again seen posterior to the distal femur and medial to the proxima l fibula. Exostosis of the medial proximal tibia is again seen no significant change since study performed 2 d ays ago.
--- NOTE | 2021-07-01 15:03 | US ---
EXAMINATION TYPE: US venous doppler duplex LE LT DATE OF EXAM: 07/01/2021 2:46 PM COMPARISON: NONE CLINICAL HISTORY: pain and swelling. Left knee pain and swelling for the past 4 days. SIDE PERFORMED: Left TECHNIQUE: The lower extremity deep venous system is examined utilizing real time linear array sonog mike with graded compression, doppler sonography and color-flow sonography. VESSELS IMAGED: Common Femoral Vein Deep Femoral Vein Greater Saphenous Vein * Femoral Vein Popliteal Vein Small Saphenous Vein * Proximal Calf Veins (* superficial vessels) Left Leg: Negative for DVT No DVT seen at this time. IMPRESSION: No evidence of deep vein thrombosis in the left leg.
[2021-07-01 15:21] VITALS: BP 142/79; PULSE 61; RESP 18
== END 2021-07-01 15:25 | disposition home or self-care (01) ==
LOC: EC 12:44
DX: S83.92XA Sprain of unspecified site of left knee, initial encounter (principal); M25.462 Effusion, left knee; I10 Essential (primary) hypertension; E78.5 Hyperlipidemia, unspecified; M19.90 Unspecified osteoarthritis, unspecified site; Z79.52 Long term (current) use of systemic steroids; Z79.899 Other long term (current) drug therapy; X50.1XXA Overexertion from prolonged static or awkward postures, initial encounter
CPT/HCPCS: 73562; 93971; 99284; L1830

== ENCOUNTER → 2022-04-14 | Outpatient (CLI) | payer MEDICAID ==
[2022-04-14 10:44] LABS: INR 0.9 (<1.2); Prothrombin Time 10.1 sec (9.0-12.0)
--- NOTE | 2022-04-14 12:21 | XR ---
EXAMINATION TYPE: XR chest 2V DATE OF EXAM: 04/14/2022 10:46 AM COMPARISON: Chest radiographs from 05/17/2018 TECHNIQUE: XR chest 2V Frontal and lateral views of the chest. CLINICAL INDICATION:Male, 61 years old with history of PRE SURGICAL TESTING; FINDINGS: Lungs/Pleura: There is no evidence of pleural effusion, focal consolidation, or pneumothorax. Pulmonary vascularity: Unremarkable. Heart/mediastinum: Cardiomediastinal silhouette is unremarkable. Musculoskeletal: No acute osseous pathology. IMPRESSION: No acute cardiopulmonary disease/process.
[2022-04-14 18:03] LABS: Appearance,Urine Clear (Clear); Bilirubin,Urine Negative (Negative); Blood,Urine Negative (Negative); Color,Urine Dark Yellow (Yellow); Ketones,Urine Trace mg/dL (Negative); Nitrite,Urine Negative (Negative); Specific Gravity,Urine 1.022 (1.001-1.030)
[2022-04-14 18:19] LABS: Basophils # (A) 0.04 X 10*3/uL (0.00-0.10); Basophils % (A) 0.3 %; Eosinophils # (A) 0.21 X 10*3/uL (0.04-0.35); Eosinophils % (A) 1.8 %; HCT 48.5 % (39.6-50.0); HGB 15.8 g/dL (13.0-17.0); Immature Grans, Automated 0.7 %; Lymphocytes # (A) 2.46 X 10*3/uL (0.90-5.00); Lymphocytes % (A) 21.5 %; MCH 30.1 pg (27.0-32.0); MCHC 32.6 g/dL (32.0-37.0); MCV 92.4 fL (80.0-97.0); Mean Platelet Volume 12.1 fL (9.5-12.2); Monocytes # (A) 0.76 X 10*3/uL (0.20-1.00); Monocytes % (A) 6.6 %; NRBC Per 100 WBC 0 /100 WBCS (0.0-0.0); Neutrophils # (A) 7.88 X 10*3/uL (1.80-7.70); Neutrophils % (A) 69.1 %; Platelet Count 293 X 10*3/uL (140-440); RBC 5.25 X 10*6/uL (4.40-5.60); RDW 13.8 % (11.5-14.5); WBC 11.43 X 10*3/uL (4.50-10.00)
[2022-04-14 18:34] LABS: African American GFR (CKD) 106.8 (60.0-200.0); Anion Gap 10.6 mmol/L (10.00-18.00); BUN/Creat Ratio 17.88 Ratio (12.00-20.00); Blood Urea Nitrogen 15.7 mg/dL (9.0-27.0); Calcium 9.9 mg/dL (8.7-10.3); Carbon Dioxide 29.5 mmol/L (20.0-27.5); Non-African American GFR(CKD) 92.2 (60.0-200.0)
== END | disposition home or self-care (01) ==
LOC: LABPAT 09:51
PROVIDERS: ATTEND Orthopaedic Surgery Orthopaedic Surgery of the Spine
DX: Z01.812 Encounter for preprocedural laboratory examination (principal); M48.02 Spinal stenosis, cervical region
CPT/HCPCS: 71046; 80048; 81003; 85025; 85610; 85730; 93005

== ENCOUNTER 2022-04-25 06:18 | Inpatient (IN) | payer MEDICAID ==
[2022-04-20 15:51] VITALS: BMI 37.3
[~2022-04-25 06:18] MED LIST changes: +DEXAMETHASONE SOD PHOSPHATE 4 MG/ML 1 ML VIAL IV ONE; -LACTATED RINGERS 1,000 ML IV SCH; +LIDOCAINE 1% (10MG/ML) FOR IV START INTRADERMA PRN; +MIDAZOLAM 2 MG/2 ML VIAL IV PRN; +ONDANSETRON 4 MG/2 ML VIAL IVP ONE
[2022-04-25] MEDS: LACTATED RINGERS 1,000 ML IV SCH (07:00)
[2022-04-25] MEDS ORDERED: fentaNYL (PF) 50 MCG/ML 2 ML AMP ONE (07:29)
[2022-04-25] MEDS ORDERED: MIDAZOLAM 2 MG/2 ML VIAL ONE (07:29)
[2022-04-25] MEDS ORDERED: DEXAMETHASONE SOD PHOS (MDV) 100 MG/10 ML VIAL ONE (07:29)
[2022-04-25] MEDS ORDERED: LIDOCAINE 2% INJ 20 MG/ML (2 ML VIAL) ONE (07:29)
[2022-04-25] MEDS ORDERED: GLYCOPYRROLATE 0.2 MG/ML 2 ML VIAL ONE (07:29)
[2022-04-25] MEDS ORDERED: NEOSTIGMINE 1 MG/ML 10 ML VIAL ONE (07:29)
[2022-04-25] MEDS ORDERED: PROPOFOL 10 MG/ML 20 ML VIAL IV ONE (07:29)
[2022-04-25] MEDS ORDERED: ROCURONIUM 10 MG/ML (5 ML VIAL) IV ONE (07:29)
[2022-04-25] MEDS ORDERED: HYDROmorphone (PF) 1 MG/ML ONE (07:29)
[2022-04-25] MEDS ORDERED: SUCCINYLCHOLINE CHLORIDE 200 MG/10 ML VIAL IV ONE (07:29)
[2022-04-25] MEDS ORDERED: LIDOCAINE 2%-EPI 1:100,000 20 ML VIAL SQ ONE (08:08)
[2022-04-25] MEDS ORDERED: GELATIN SPONGE,ABSORB (LARGE) 1 EACH SPONGE TOPICAL ONE (08:30)
[2022-04-25] MEDS ORDERED: THROMBIN (BOVINE) 5,000 UNIT VIAL TOPICAL ONE (08:32)
[2022-04-25] MEDS ORDERED: ceFAZolin 1,000 MG in SODIUM CHLORIDE 0.9% 1,000 ML IRRIGATION ONE (08:40)
--- NOTE | 2022-04-25 09:46 | XR ---
EXAMINATION TYPE: XR cervical spine 1V DATE OF EXAM: 04/25/2022 COMPARISON: 04/27/2020 HISTORY: Numbness in fingers TECHNIQUE: Crosstable lateral cervical spine is obtained. FINDINGS: There is a metallic device directed to the C4-5 disc level. Patient is intubated. IMPRESSION: 1. Metallic device directed to the C4-5 disc level.
[2022-04-25] MEDS ORDERED: CYCLOBENZAPRINE 10 MG TAB PO PRN (10:46)
[2022-04-25] MEDS ORDERED: MAG HYDROX/AL HYDROX/SIMETH 30 ML CUP PO PRN (10:46)
[2022-04-25] MEDS ORDERED: HYDROmorphone 0.5 MG/0.5 ML SYRINGE IVP PRN (10:46)
[2022-04-25] MEDS ORDERED: HYDROmorphone 1 MG/ML 1 ML SYRINGE IVP PRN (10:46)
[2022-04-25] MEDS ORDERED: BENZOCAINE/MENTHOL LOZENG 1 EACH LOZENGE MUCOUS MEM PRN (10:46)
[2022-04-25] MEDS ORDERED: ONDANSETRON 4 MG/2 ML VIAL IVP PRN (10:46)
--- NOTE | 2022-04-25 10:53 | P.OP ---
Date of Procedure: 04/25/22 Preoperative Diagnosis: Cervical myelopathy, severe cervical stenosis C3 4 C4 5 C5 6 C6 7, spondylolisthesis, herniated nucleus pulposis C3 4 C4 5 C5 6 C6 7, upper extremity myeloradiculopathy, upper extremity weakness, degenerative disc disease, neck pain Postoperative Diagnosis: Same Anesthesia: GETA Pathology: none sent Condition: stable Disposition: PACU Description of Procedure: BRIEF OPERATIVE NOTE Preoperative Diagnosis:Cervical myelopathy, severe cervical stenosis C3 4 C4 5 C5 6 C6 7, spondylolisthesis, herniated nucleus pulposis C3 4 C4 5 C5 6 C6 7, upper extremity myeloradiculopathy, upper extremity weakness, degenerative disc disease, neck pain Postoperative Diagnosis:Cervical myelopathy, severe cervical stenosis C3 4 C4 5 C5 6 C6 7, spondylolisthesis, herniated nucleus pulposis C3 4 C4 5 C5 6 C6 7, upper extremity myeloradiculopathy, upper extremity weakness, degenerative disc disease, neck pain Procedure: Anterior cervical decompression discectomy and fusion C3 4, C4 5, C5 6, C6 7 Removal of anterior cervical osteophytes Placement of interbody graft C3 4 C4 5 C5 6 C6 7 Application of anterior cervical plate C3 to 7 Surgeon: Dr. Sharma Investigator Vice: Osvaldo Miranda is present throughout the entire the case persistence during positioning, dissection, exposure, visualization, and all cru cial elements of the case as well as closure. Anesthesia: General anesthesia per Dr. Guerrero Estimated blood loss: Approximately 75 mL Complications: None apparent Components implanted: K2M [place] anterior cervical plate and screw system with 4 level plate with Vikos interbody allograft bone graft and 1 mL of DBX bone putty Disposition: To recovery room in good stable condition. OPERATIVE INDICATIONS The patient has had long-standing issues in their neck and upper extremities. He's been having worsening of his symptoms at his neck and his upper extremities and exhibiting some weakness with gait abnormality as well. The patient has been through conservative treatment. His found have evidence of severe stenosis at multiple levels of the cervical spine from C3 to C7 with evidence of cervical myelopathy. He is having worsening of his symptoms despite conservative treatment. We discussed various treatment options including surgery, and the patient wishes to proceed with surgery We discussed the risk, patient's alternatives and benefits of surgery including but not limited to, risk of bleeding risk of infection, risk of need for further surgery, risk of decreased, loss of motion, muscle function, malunion nonunion, hardware failure, nerve damage, paralysis, heart attack, and . OPERATIVE SUMMARY After discussing all the risks, patient alternatives and benefits at length, the patient elected to proceed with surgical intervention, signed informed consent, and presented for their procedure. The patient was seen and examined in the preoperative holding area and the surgical site was marked. The patient was given antibiotics and brought to the operating room. The patient was positioned on the operating room table in a supine position being careful to pad any bony prominences and pressure points. The patient was sedated and intubated by anesthesia in standard fashion. Once the airway and C- spine were stabilized the patient's arms were padded and tucked at her side, with her shoulders gently taped. The head was placed in a donut pad with the neck in good neutral alignment and position. We were careful to maintain the patient's cervical spine and good neutral alignment and position throughout. The patient was prepped and draped in a normal standard fashion. An appropriate timeout and keystone protocol performed. We were able to proceed with the surg jonathan. The local wound area was infiltrated with local anesthetic. An incision was made longitudinally on the right approximately 2-1/2 cm over the appropriate levels. Dissection was taken down subcutaneously to the level of the platysma which was split in line with its fibers. Dissection was taken with a carotid approach, with the trachea and esophagus medial and the carotid sheath laterally. We dissected down to the anterior surface of the vertebral bodies from C3 to C7. Intraoperative x-ray was taken which showed a marker at the appropriate level of C45. With the appropriate level positively confirmed, we were able to proceed with discectomy at the appropriate levels. I started at C3 4 and then worked my way down the C4 5 and C5 6 and C6 7. There are large osteophytes at multiple levels and these had been removed as well. All of the operative levels were exposed appropriately. The patient had all their twitches back, and there was no evidence of recurrent laryngeal issue. The wound was copiously irrigated and suctioned dry as had been done periodically throughout the case. At the appropriate level/levels, I established an annulotomy with an 11 blade scalpel. A discectomy was performed with a combination of pituitary rongeurs, curettes, a high-speed bur, and Kerrison rongeurs. The posterior longitudinal ligament was taken down as were any posterior osteophytes. I have been severe central and bilateral foraminal stenosis with extruded disc fragment which was removed and the decompression gave good space for the cord and neural foramen. This gave good central and bilateral foraminal decompression. There is no evidence of any dural tear or leak. The endplates were prepared with a high-speed bur. With the endplates in good parallel position, I was able to size for the appropriate size interbody graft. The wound was irrigated and suctioned dry the graft was prepared and malleted into position. It had good alignment and position with the anterior surface flush with the anterior surface of the vertebral bodies. This was done similarly the appropriate levels at C3 4 C4 5 C5 6 and C6 7. With the grafts intact, I was able to measure and contour and appropriate sized plate. The plate was positioned at the midline over the appropriate levels from C3 to C7. Screw holes were established with a hand drill and drill guide. Screws were placed in good alignment and position with excellent bony purchase. They were seated under the locking device. The construct was checked and found to be stable. Intraoperative x-ray was taken which showed good alignment and position of the implants at the appropriate levels. There was no evidence of any dural tear or leak. Good hemostasis was maintained. The wound was copiously irrigated and suctioned dry as had been done periodically throughout the case. The platysma was closed with absorbable suture. The subcutaneous tissue was closed. The subcuticular tissue was closed with absorbable suture. The wound was cleaned and dried and dressed appropriately. A soft cervical collar was placed appropriately. The patient was woken up by anesthesia, extubated, transferred back gently to their hospital bed and brought to the recovery room in good stable condition. The patient will be admitted to the hospital for appropriate postoperative care, medical management and monitoring. We will continue to follow them closely about the postoperative course.
[2022-04-25] MEDS: HYDROmorphone 0.5 MG/0.5 ML SYRINGE IVP PRN ×3 (10:59→11:35)
[2022-04-25] MEDS ORDERED: ONDANSETRON 4 MG/2 ML VIAL IVP ONE (11:35)
--- NOTE | 2022-04-25 12:35 | XR ---
EXAMINATION TYPE: XR cervical spine 1V DATE OF EXAM: 04/25/2022 COMPARISON: 04/25/2022 earlier exam HISTORY: Anterior cervical fusion TECHNIQUE: Crosstable lateral cervical spine FINDINGS: Exam is limited but the shoulders. The lower portion of the cervical spine. There is anteri or cervical fusion at C3-4 with a disc spacer. Below this level, the distal aspects obscured however. IMPRESSION: 1. Postsurgical anterior cervical fusion.
[2022-04-25] MEDS: SODIUM CHLORIDE 0.9% 1,000 ML IV SCH (16:00)
[2022-04-25] MEDS: HYDROcodone/APAP 5-325MG 1 EACH TAB PO PRN (18:02)
[2022-04-25] MEDS ORDERED: ATORVASTATIN 40 MG TAB PO SCH (21:00)
[2022-04-25] MEDS ORDERED: atenoloL 50 MG TAB PO SCH (21:00)
[2022-04-25] MEDS ORDERED: CHLORTHALIDONE 25 MG TAB PO SCH (21:00)
[2022-04-26] MEDS: SODIUM CHLORIDE 0.9% 1,000 ML IV SCH (00:50)
[2022-04-26] MEDS: LACTATED RINGERS 1,000 ML IV SCH (00:50)
[2022-04-26] MEDS: HYDROcodone/APAP 5-325MG 1 EACH TAB PO PRN ×2 (03:46→09:06)
[2022-04-26 08:01] VITALS: BP 118/71; RESP 16; TEMP 98.1
[2022-04-26] MEDS: SENNOSIDES-DOCUSATE SODIUM 1 EACH TAB PO SCH ×2 (08:10→09:06)
[2022-04-26 08:16] VITALS: PULSE 67
[2022-04-26] MEDS ORDERED: SENNOSIDES-DOCUSATE SODIUM 1 EACH TAB PO SCH (09:00)
--- NOTE | 2022-04-26 09:28 | P.DS ---
Providers Date of admission: 04/25/22 06:18 Attending physician: Liu Sharma Primary care physician: [facility] Course: The patient presented on the day of admission as per their operative note. He feels his arms are doing well. His swallowing is good. He has been able to turn around the room and he is voiding freely. Physical Exam The incision site is clean dry and intact. There is no erythema no drainage. There is no purulence no evidence of infection. His neck is soft and supple Abdomen soft and nontender. Chest has good excursion with deep inspiration and expiration. The patient has active and passive range of motion intact at the upper and lower extremities. There is no acute change in neurologic status. Hospital Course Postoperative day #1 status post anterior cervical decompression with discectomy and fusion C3 4 C4 5 C5 6 and C6 7 for his severe cervical stenosis with cervical myelopathy and upper extremity radiculopathy. Patient is making good progress postoperatively and is feeling well this morning. His neck appears to be stable without issues around his incision site. The patient has been making good progress postoperatively. They have completed the prophylactic antibiotics without any signs or symptoms of infection. The patient has been able to advance their diet, and is tolerating diet adequately. The pain was initially controlled with IV medications and is now controlled appropriately with oral medications. The patient has been able to increase their mobilization. The patient has progressed appropriately. I think they are in good stable condition for discharge today. They will be sent home with appropriate prescriptions. I answered their questions to the best of my ability in a language that they can understand and they are agreeable with the plan. They will follow up as directed. Patient Condition at Discharge: Good Plan - Discharge Summary Discharge Rx Participant: No New Discharge Prescriptions: No Action Atorvastatin [Lipitor] 40 mg PO HS Atenolol/Chlorthalidone [Atenolol-Chlorthalidone 50-25] 1 tab PO HS Discharge Medication List Atorvastatin [Lipitor] 40 mg PO HS 07/19/17 [History] Atenolol/Chlorthalidone [Atenolol-Chlorthalidone 50-25] 1 tab PO HS 12/25/18 [History]
== END 2022-04-26 11:38 | disposition home or self-care (01) | DRG 472 ==
LOC: 2ORMAIN 06:18 → EDSTATUS 07:30 → 4SSUR 11:21
PROVIDERS: ADMIT Orthopaedic Surgery Orthopaedic Surgery of the Spine; ATTEND Orthopaedic Surgery Orthopaedic Surgery of the Spine
PROC: 0RG20K0 Fusion of 2 or more Cervical Vertebral Joints with Nonautologous Tissue Substitute, Anterior Approach, Anterior Column, Open Approach (ICD-10-PCS; 2022-04-25)
PROC: 0RT30ZZ Resection of Cervical Vertebral Disc, Open Approach (ICD-10-PCS; 2022-04-25)
PROC: 0RG20A0 Fusion of 2 or more Cervical Vertebral Joints with Interbody Fusion Device, Anterior Approach, Anterior Column, Open Approach (ICD-10-PCS; principal; 2022-04-25 07:30)
DX: M43.12 Spondylolisthesis, cervical region (principal); M50.01 Cervical disc disorder with myelopathy, high cervical region; M50.11 Cervical disc disorder with radiculopathy, high cervical region; M48.02 Spinal stenosis, cervical region; M25.78 Osteophyte, vertebrae; Z79.899 Other long term (current) drug therapy; Z87.891 Personal history of nicotine dependence
CPT/HCPCS: 72020

== ENCOUNTER 2023-06-29 09:46 | Emergency (ER) | payer MEDICAID ==
[2023-06-29 10:02] VITALS: TEMP 98.1
--- NOTE | 2023-06-29 10:45 | ED ---
General Adult HPI - General Chief complaint: Recheck/Abnormal Lab/Rx Stated complaint: R side pain/Fall Time Seen by Provider: 06/29/23 10:16 Source: patient, family, RN notes reviewed Mode of arrival: ambulatory Limitations: no limitations - History of Present Illness Initial comments: Patient is a pleasant 63-year-old male present to the emergency department with left-sided back pain. Onset of symptoms was a few days ago when he fell. Patient was going to the bathroom and tripped over a scale. No head injury. No syncope. No loss of consciousness. Patient has had discomfort left lower ribs and left lumbar region. Discomfort has somewhat increased over the past couple of days. No hematuria. No weakness. - Related Data Home Medications Medication Instructions Recorded Confirmed Atorvastatin [Lipitor] 40 mg PO HS 07/19/17 04/20/22 Atenolol/Chlorthalidone 1 tab PO HS 12/25/18 04/20/22 [Atenolol-Chlorthalidone 50-25] Previous Rx's Medication Instructions Recorded HYDROcodone/APAP 5-325MG [Joy 1 tab PO Q6HR PRN 7 Days #28 tab 04/26/22 5-325] Allergies Allergy/AdvReac Type Severity Reaction Status Date / Time No Known Allergies Allergy Verified 06/29/23 09:51 Review of Systems ROS Statement: Those systems with pertinent positive or pertinent negative responses have been documented in the HPI. ROS Other: All systems not noted in ROS Statement are negative. Constitutional: Denies: fever Eyes: Denies: eye pain ENT: Denies: ear pain Respiratory: Denies: cough, dyspnea Cardiovascular: Denies: chest pain Gastrointestinal: Denies: abdominal pain Musculoskeletal: Reports: back pain Past Medical History Past Medical History: Hyperlipidemia, Hypertension, Osteoarthritis (OA), Prostate Disorder Additional Past Medical History / Comment(s): Slight BPH History of Any Multi-Drug Resistant Organisms: None Reported Past Surgical History: Appendectomy, Hernia Repair, Joint Replacement, Orthopedic Surgery Additional Past Surgical History / Comment(s): Rt total hip 04-01-18; LT TOTAL HIP 05/12/18. Rt rotator cuff, Ing & Umb hernia repair, left knee meniscus repair. Anterior cervical Decompression/Discectomy/fusion (04/25/22). Past Anesthesia/Blood Transfusion Reactions: No Reported Reaction Past Psychological History: No Psychological Hx Reported Smoking Status: Former smoker Past Alcohol Use History: Occasional Past Drug Use History: None Reported - Past Family History Mother Family Medical History: No Reported History Brother(s) Family Medical History: Cancer Additional Family Medical History / Comment(s): PROSTATE CA Father Family Medical History: Hypertension General Exam Limitations: no limitations General appearance: alert, in no apparent distress Head exam: Present: atraumatic Eye exam: Present: normal appearance Neck exam: Present: normal inspection. Absent: tenderness Respiratory exam: Present: normal lung sounds bilaterally Cardiovascular Exam: Present: regular rate, normal rhythm GI/Abdominal exam: Present: soft, tenderness (Mild tenderness left upper) Extremities exam: Present: normal inspection. Absent: tenderness Back exam: Present: CVA tenderness (L) (Including left lower ribs and left lateral lumbar region) Neurological exam: Present: alert. Absent: motor sensory deficit Psychiatric exam: Present: normal affect, normal mood Skin exam: Present: normal color Course Vital Signs 06/29/23 06/29/23 06/29/23 09:48 10:51 11:00 Temperature 98.1 F Pulse Rate 51 L 67 67 Respiratory 22 17 17 Rate Blood Pressure 165/97 130/83 130/83 O2 Sat by Pulse 94 L 96 96 Oximetry Medical Decision Making - Medical Decision Making Was pt. sent in by a medical professional or institution (, PA, CONTAINER FINISHER, urgent care, hospital, or [facility]...) When possible be specific @ -No Did you speak to anyone other than the patient for history (EMS, parent, family, police, friend...)? What history was obtained from this source @ -No Did you review nursing and triage notes (agree or disagree)? Why? @ -I reviewed and agree with nursing and triage notes Were old charts reviewed (outside hosp., previous admission, EMS record, old EKG, old radiological studies, urgent care reports/EKG's, [facility] records)? Report findings @ -No old charts were reviewed Differential Diagnosis (chest pain, altered mental status, abdominal pain women, abdominal pain men, vaginal bleeding, weakness, fever, dyspnea, syncope, headache, dizziness, GI bleed, back pain, seizure, CVA, palpatations, mental health, musculoskeletal)? @ -Differential Musculoskeletal Muscular strain, contusion, ligament sprain, fracture, arthritis, septic arthritis, bursitis, cellulitis, muscle spasm, nerve compression, DVT, arterial occlusion, herpes zoster, electrolyte abnormality, tumor.... This is not meant to be in all inclusive list EKG interpreted by me (3pts min.). @ -As above X-rays interpreted by me (1pt min.). @ -X-rays show left ninth rib fracture CT interpreted by me (1pt min.). @ -CT scan abdomen pelvis shows fracture of ribs 9 through 11. U/S interpreted by me (1pt. min.). @ -None done What testing was considered but not performed or refused? (CT, X-rays, U/S, labs)? Why? @ -None What meds were considered but not given or refused? Why? @ -None Did you discuss the management of the patient with other professionals (professionals i.e. , PA, CONTAINER FINISHER, lab, RT, psych nurse, social group worker, fitter welder, teacher, chief fundraising officer, mental health case manager)? Give summary @ -No Was smoking cessation discussed for >3mins.? @ -No Was critical care preformed (if so, how long)? @ -No Were there social determinants of health that impacted care today? How? (Homelessness, low income, unemployed, alcoholism, drug addiction, transportation, low edu. Level, literacy, decrease access to med. care, assisted, rehab)? @ -No Was there de-escalation of care discussed even if they declined (Discuss DNR or withdrawal of care, Hospice)? DNR status @ -No What co-morbidities impacted this encounter? (DM, HTN, Smoking, COPD, CAD, Cancer, CVA, ARF, Chemo, Hep., AIDS, mental health diagnosis, sleep apnea, morb id obesity)? @ -None Was patient admitted / discharged? Hospital course, mention meds given and rou te, prescriptions, significant lab abnormalities, going to OR and other pertinent info. @ -Patient reevaluated. Patient updated on results and need for follow-up. Undiagnosed new problem with uncertain prognosis? @ -No Drug Therapy requiring intensive monitoring for toxicity (Heparin, Nitro, Insu keenan, Cardizem)? @ -No Were any procedures done? @ -No Diagnosis/symptom? @ -Left rib fractures Acute, or Chronic, or Acute on Chronic? @ -Acute Uncomplicated (without systemic symptoms) or Complicated (systemic symptoms)? @ -Default Side effects of treatment? @ -No Exacerbation, Progression, or Severe Exacerbation? @ -No Poses a threat to life or bodily function? How? (Chest pain, USA, [place], pneumonia, PE, COPD, DKA, ARF, appy, cholecystitis, CVA, Diverticulitis, Homicidal, Suicidal, threat to staff... and all critical care pts) @ -No - Lab Data Result diagrams: 06/29/23 10:42 06/29/23 10:42 Lab Results 06/29/23 06/29/23 06/29/23 Range/Units 10:42 10:42 10:42 WBC 11.7 H (3.8-10.6) k/uL RBC 5.51 (4.30-5.90) m/uL Hgb 16.6 (13.0-17.5) gm/dL Hct 50.5 (39.0-53.0) % MCV 91.6 (80.0-100.0) fL MCH 30.1 (25.0-35.0) pg MCHC 32.8 (31.0-37.0) g/dL RDW 13.8 (11.5-15.5) % Plt Count 295 (150-450) k/uL MPV 9.6 Neutrophils % 77 % Lymphocytes % 13 % Monocytes % 8 % Eosinophils % 1 % Basophils % 0 % Neutrophils # 8.9 H (1.3-7.7) k/uL Lymphocytes # 1.5 (1.0-4.8) k/uL Monocytes # 0.9 (0-1.0) k/uL Eosinophils # 0.1 (0-0.7) k/uL Basophils # 0.0 (0-0.2) k/uL PT 10.4 (10.0-12.5) sec INR 0.9 (<1.2) APTT 26.2 (22.0-30.0) sec Sodium 138 (137-145) mmol/L Potassium 3.7 (3.5-5.1) mmol/L Chloride 101 (98-107) mmol/L Carbon Dioxide 30 (22-30) mmol/L Anion Gap 7 mmol/L BUN 25 H (9-20) mg/dL Creatinine 0.77 (0.66-1.25) mg/dL Est GFR (CKD-EPI)AfAm >90 (>60 ml/min/1.73 sqM) Est GFR (CKD-EPI)NonAf >90 (>60 ml/min/1.73 sqM) Glucose 100 H (74-99) mg/dL Calcium 9.3 (8.4-10.2) mg/dL Total Bilirubin 0.8 (0.2-1.3) mg/dL AST 46 (17-59) U/L ALT 48 (4-49) U/L Alkaline Phosphatase 126 (38-126) U/L Total Protein 7.4 (6.3-8.2) g/dL Albumin 3.9 (3.5-5.0) g/dL Disposition Clinical Impression: Rib fractures Disposition: HOME SELF-CARE Condition: Stable Instructions (If sedation given, give patient instructions): Rib Fracture (ED) Additional Instructions: Please do follow-up with primary care physician in the next day or 2 for recheck. Return for difficulty breathing, increased pain, worsening or changing symptoms or other concerns Is patient prescribed a controlled substance at d/c from ED?: No Referrals: Austin Nix DO [Primary Care Provider] - 1-2 days Time of Disposition: 13:19
[2023-06-29] MEDS: MORPHINE SULFATE 4 MG/ML SYRINGE IVP STA (11:10)
[2023-06-29 11:30] VITALS: RESP 17
--- NOTE | 2023-06-29 11:33 | XR ---
EXAMINATION TYPE: XR ribs LT w pa chest xray DATE OF EXAM: 06/29/2023 CLINICAL HISTORY: Falling injury with pain. TECHNIQUE: Single frontal view of the chest is obtained. A frontal and oblique images of the left-karishma ed ribs. COMPARISON: Chest x-ray April 14, 2022 FINDINGS: Elevated right hemidiaphragm is now present. Lungs remain clear. The cardiac silhouette s ize remains within normal limits. There is now long segment surgical change of the cervical spine. Dedicated images of left-sided ribs show no acute displaced fractures. Degenerative change in the lef t shoulder is present. IMPRESSION: 1. No acute displaced left-sided rib fractures. 2. No suspicious acute pulmonary infiltrate.
--- NOTE | 2023-06-29 11:59 | CT ---
EXAMINATION TYPE: CT abdomen pelvis w con DATE OF EXAM: 06/29/2023 COMPARISON: None. HISTORY: left sided pain after trauma injury. CT DLP: 2515.7 mGycm, Automated Exposure Control for Dose Reduction was Utilized. CONTRAST: CT scan of the abdomen and pelvis is performed without oral and with IV Contrast, patient injected wi th 100 mL of Isovue 300. FINDINGS: LUNG BASES: Dependent opacity favors atelectasis. Moderate to severe three-vessel Coronary artery maxwell cification is present. LIVER/GB: There is 1.2 cm low dense lesion in the right hepatic dome axial image 12 that is too small to further characterize becoming more isodense on delayed images. PANCREAS: No significant abnormality is seen. SPLEEN: No significant abnormality is seen. ADRENALS: No significant abnormality is seen. KIDNEYS: There is 2.9 cm simple appearing thin-walled cyst laterally in the right kidney axial image 33. No hydronephrosis seen bilaterally.. BOWEL: Small sized hiatal hernia. No abnormal small or large bowel dilatation. Diverticula in the lef t and sigmoid colon are present. No CT evidence for acute diverticulitis. PROSTATE/SEMINAL VESICLES: Suboptimally evaluated. Enlarged prostate gland is suspected. LYMPH NODES: No greater than 1cm abdominal or pelvic lymph nodes are appreciated. OSSEOUS STRUCTURES: Metallic hardware from bilateral hip arthroplasty is present causing streak artif act somewhat limiting evaluation of pelvic structures. Multilevel spurring in the thoracolumbar spine . Vacuum disc phenomenon with mild/moderate disc space narrowing at the L3-L4 and L4-L5 levels. Acute displaced fracture involving the posterior left 11th rib axial image 41 and acute nondisplaced fracture involving the posterior lateral left 10th rib axial image 38 are noted. There is also likely acute nondisplaced fracture involving posterior lateral left ninth rib axial image 32. OTHER: Mild to moderate calcified plaque of the aorta extends into branch vessels. IMPRESSION: 1. Acute displaced fracture involving posterior left 11th rib less well seen on rib x-rays due to bod y habitus. Acute nondisplaced fractures involving posterolateral left ninth and 10th ribs. 2. No acute posttraumatic finding in the abdomen or pelvis.
[2023-06-29] MEDS: HYDROmorphone 1 MG/ML 1 ML SYRINGE IVP STA (12:17)
[2023-06-29 12:27] LABS: Basophils % (A) 0 %; Eosinophils # (A) 0.1 k/uL (0-0.7); Eosinophils % (A) 1 %; HCT 50.5 % (39.0-53.0); HGB 16.6 gm/dL (13.0-17.5); Lymphocytes # (A) 1.5 k/uL (1.0-4.8); Lymphocytes % (A) 13 %; MCH 30.1 pg (25.0-35.0); MCHC 32.8 g/dL (31.0-37.0); MCV 91.6 fL (80.0-100.0); Mean Platelet Volume 9.6; Monocytes # (A) 0.9 k/uL (0-1.0); Monocytes % (A) 8 %; Neutrophils # (A) 8.9 k/uL (1.3-7.7); Neutrophils % (A) 77 %; Platelet Count 295 k/uL (150-450); RBC 5.51 m/uL (4.30-5.90); RDW 13.8 % (11.5-15.5); WBC 11.7 k/uL (3.8-10.6)
[2023-06-29 12:36] LABS: INR 0.9 (<1.2); Partial Thromboplastin Time 26.2 sec (22.0-30.0); Prothrombin Time 10.4 sec (10.0-12.5)
[2023-06-29 12:48] LABS: ALT 48 U/L (4-49); AST 46 U/L (17-59); African American GFR (CKD) >90 (>60 ml/min/1.73 sqM); Albumin 3.9 g/dL (3.5-5.0); Alkaline Phosphatase 126 U/L (38-126); Anion Gap 7 mmol/L; Blood Urea Nitrogen 25 mg/dL (9-20); Calcium 9.3 mg/dL (8.4-10.2); Carbon Dioxide 30 mmol/L (22-30); Chloride 101 mmol/L (98-107); Glucose 100 mg/dL (74-99); Non-African American GFR(CKD) >90 (>60 ml/min/1.73 sqM); Potassium 3.7 mmol/L (3.5-5.1); Sodium 138 mmol/L (137-145); Total Bilirubin 0.8 mg/dL (0.2-1.3); Total Protein 7.4 g/dL (6.3-8.2)
[2023-06-29] MEDS: ACET/COD 300 MG/30 MG STARTER PACK 6 TAB BTL PO STA (13:37)
[2023-06-29 13:48] VITALS: BP 138/92; PULSE 65
== END 2023-06-29 13:38 | disposition home or self-care (01) ==
LOC: EC 09:46
DX: S22.32XA Fracture of one rib, left side, initial encounter for closed fracture (principal); I10 Essential (primary) hypertension; E78.5 Hyperlipidemia, unspecified; M19.90 Unspecified osteoarthritis, unspecified site; Z87.891 Personal history of nicotine dependence; Z79.899 Other long term (current) drug therapy; W18.30XA Fall on same level, unspecified, initial encounter
CPT/HCPCS: 36415; 80053; 85025; 85610; 85730; 71101; 74177; 99284; 96374; 96375; J2270; J1170; Q9967

== ENCOUNTER → 2023-11-27 | Outpatient (CLI) | payer MEDICAID ==
--- NOTE | 2023-11-27 13:09 | CTL ---
EXAMINATION TYPE: CT Low Dose Lung DATE OF EXAM ORDERED: 11/27/2023 HISTORY: . Low Dose CT Lung Screening CT DLP: 88.[address] CTDI: 2.4 mGy IV CONTRAST USED: None. SCREENING VISIT: First visit COMPARISON: None. TECHNIQUE: Low dose computed tomography scan was performed through the chest at 1 millimeter thick se ctions and reconstructed images in the coronal plane at [address] DIAGNOSTIC QUALITY: Satisfactory FINDINGS: LUNG NODULES well-circumscribed solid nodule right upper lobe anteriorly image 87 measuring 4 mm. LUNGS: COPD: Severity: Mild Fibrosis: Severity:None Lymph nodes: None Other findings: None RIGHT PLEURAL SPACE: Effusion: None Calcification: None Thickening: None Pneumothorax: None LEFT PLEURAL SPACE: Effusion: None Calcification: None Thickening: None Pneumothorax: None HEART: Heart Size: Mildly enlarged Coronary calcification: Mild Pericardial effusion: None OTHER FINDINGS: Upper abdomen: No significant abnormality Bony thorax: Degenerative changes Supraclavicular region: No significant abnormality Other: Ascending thoracic aortic aneurysm measuring 4.5 cm AP dimension. IMPRESSION: 1. stable 4 mm solitary right upper lobe pulmonary nodule. 2. Ascending thoracic aortic aneurysm measuring 4.5 cm AP dimension. FOLLOW UP CT CHEST RECOMMENDATION: Follow-up screening in one year CT LUNG RAD: LUNG RAD CATEGORY 2 benign appearance and/or behavior
== END | disposition home or self-care (01) ==
LOC: RADCTMAIN 08:00
PROVIDERS: ATTEND Family Medicine
DX: Z12.2 Encounter for screening for malignant neoplasm of respiratory organs (principal); I71.21 Aneurysm of the ascending aorta, without rupture; R91.1 Solitary pulmonary nodule; Z87.891 Personal history of nicotine dependence
CPT/HCPCS: 71271

== ENCOUNTER → 2024-07-15 | Outpatient (CLI) | payer MEDICAID ==
--- NOTE | 2024-07-15 08:48 | MR ---
EXAMINATION TYPE: MR Prostate wo/w con DATE OF EXAM: 07/15/2024 8:38 AM COMPARISON: None. CLINICAL INDICATION: Male, 64 years old with history of R97.20 ELEVATED PSA; Elevated PSA. TECHNIQUE: Multi-planar, multi-sequence imaging of the pelvis is performed prior to and following the uncomplicated administration of bolus intravenous gadolinium. IV Contrast: 12 mL Gadobutrol Interpretive Criteria: PI-RADS v2.1 SERUM PSA: 05-25-24 = 7.50 7- = 8.78 SURGICAL PATHOLOGY: No data available. FINDINGS: Prostatic dimensions: 4.8 x 8.4 x 4.3 cm. Ellipsoid Volume:90.78 (PSA density=0.10 ng/mL/mL) CENTRAL GLAND (Central and Transition Zones/CZ+TZ): Multiple bilateral, heterogenous appearing hypertrophic stromal nodules, without suspicious lesion. M edian lobe hypertrophy with protrusion into the base of the bladder. (PI-RADS 2) PERIPHERAL ZONE (PZ): Bilateral hip arthroplasties limiting evaluation diffusion-weighted imaging. Bilateral linear, indistinct wedgelike areas of low ADC, and low T2 signal, No evidence of masslike a bnormality, or localized perfusional hypervascularity, to further suggest a focus of clinically signi ficant prostate cancer. (PI-RADS 2) SEMINAL VESICLES (SV): Symmetric and unremarkable. PERIPROSTATIC TISSUES: Unremarkable. LYMPH NODES: No enlarged pelvic lymph node. REMAINING PELVIS: Bladder wall is within normal limits given distention. No abnormal free or organized intrapelvic fluid collection. No pathologic bowel dilation or mural thickening. Colonic diverticula are present. Bilateral fat containing inguinal hernias. OSSEOUS STRUCTURES: No suspicious osseous abnormality. Bilateral hip arthroplasties limits evaluation due to susceptibili ty artifact.. IMPRESSION: Limited evaluation due to bilateral hip arthroplasties on diffusion-weighted imaging. 1. No specific features for high-risk prostate cancer. Maximum PI-RADS score: 2. 2. Substantial BPH, estimated gland volume 90.78 mL (PSA density=0.10 ng/mL/mL) 3. No suspicious osseous lesion. No lymphadenopathy. No evidence of prostate adenocarcinoma involving the periprostatic tissues. [facility], , 07/15/2024 8:46 AM
== END | disposition home or self-care (01) ==
LOC: RADMRIMAIN 07:37
PROVIDERS: ATTEND Urology
DX: N40.0 Benign prostatic hyperplasia without lower urinary tract symptoms (principal); R97.20 Elevated prostate specific antigen [PSA]; Z96.643 Presence of artificial hip joint, bilateral
CPT/HCPCS: 72197; A9585